=== PATIENT | female | born 1970 | race Caucasian/White ===

== ENCOUNTER 2016-10-19 07:48 | Inpatient (IN) | payer OTHER ==
[2016-10-19] MEDS ORDERED: NS 0.9% 1000 ML* 1,000 ML IV ONE (08:54)
[2016-10-19 09:34] LABS: Hematocrit 38 % (35-47); Hemoglobin 12.3 g/dl (12.0-16.0); Mean Corpuscular HGB Conc 33 g/dl (31-36); Mean Corpuscular Hemoglobin 26 pg (27-31); Mean Corpuscular Volume 81 fL (80-97); Mean Platelet Volume 8 um3 (7.4-10.4); Red Blood Count 4.66 10^6/ul (4.0-5.4); Red Cell Distribution Width 15 % (10.5-15)
[2016-10-19 09:55] LABS: Albumin 3.8 g/dL (3.2-5.2); BUN/Creatinine Ratio 14.5 (8-20); C Reactive Protein 48.51 mg/L (< 5.00); Calcium 9.2 mg/dL (8.6-10.3); EGFR African American 117.8 (>60); EGFR Non-African American 91.6 (>60); Potassium 4.3 mmol/L (3.5-5.0); Total Bilirubin 0.4 mg/dL (0.2-1.0); Total Protein 6.8 g/dL (6.4-8.9)
[2016-10-19] MEDS ORDERED: NS 0.9% 1000 ML* 3,000 ML IV ONE (10:00)
[2016-10-19] MEDS ORDERED: cefTRIAXone VIAL(*) 1,000 MG in NS 0.9% 50 ML* 50 ML IVPB ONE (10:04)
[2016-10-19] MEDS ORDERED: Azithromycin IV(*) 500 MG in NS 0.9% 250 ML* 250 ML IVPB ONE (10:04)
[2016-10-19] MEDS ORDERED: cefTRIAXone(*) 1 GM ADVAN/BAG ONE ×2 (10:11→10:14)
[2016-10-19 10:22] LABS: Erythrocyte Sed Rate 23 mm/Hr (0-14)
--- NOTE | 2016-10-19 10:23 | RAD ---
INDICATION: Cough. COMPARISON: Comparison is made with a prior chest x-ray study from June 08, 2015. TECHNIQUE: A portable view of the chest was obtained. FINDINGS: Cardiac and mediastinal contours appear to be within normal limits. The lungs are clear. No pleural effusion is seen. IMPRESSION: NO EVIDENCE FOR ACUTE DISEASE.
--- NOTE | 2016-10-19 10:57 | RAD ---
HISTORY: Chest pain, history of sarcoid COMPARISONS: June 21, 2016 TECHNIQUE: Multiple contiguous axial CT scans of the chest were obtained without intravenous contrast. Coronal and sagittal multiplanar reformations are also submitted for review. FINDINGS: The study is limited by the lack of intravenous contrast. This limits evaluation of the solid organs and vasculature. NECK AND THYROID: The lower neck and thyroid are unremarkable. CHEST WALL: There is no lower cervical, axillary, or supraclavicular lymphadenopathy by size criteria. HEART AND PERICARDIUM: The heart is unremarkable. AORTA AND PULMONARY VASCULATURE: The aorta and pulmonary vasculature are normal. MEDIASTINUM: There is no mediastinal lymphadenopathy by size criteria. MELINDA: Evaluation of the melinda is limited by the lack of intravenous contrast. There is no obvious hilar lymphadenopathy by size criteria. AIRWAY AND ESOPHAGUS: The airway is unremarkable, without endobronchial filling defect. The esophagus is grossly normal. LUNG PARENCHYMA: There is a 0.4 cm nodule of the right lower lobe on axial image 28. There is a 0.6 cm nodule of the right middle lobe on axial image 30. There are 2 nodules in the right lower lobe on axial image 27 measuring up to 0.4 cm. These are not clearly seen on the previous examination, though evaluation of the previous examination is limited by patient motion artifact. PLEURA: No pleural abnormalities are noted. UPPER ABDOMEN: There is fatty infiltration of liver BONES AND SOFT TISSUES: Degenerative changes are noted of the spine OTHER: None. IMPRESSION: 1. RIGHT PULMONARY PARENCHYMAL NODULES MEASURING UP TO 0.6 CM IN SIZE. 2. THE RECOMMENDATIONS FOR FOLLOWUP AND MANAGEMENT OF AN INCIDENTALLY DETECTED PULMONARY NODULE GREATER THAN 4 MM BUT LESS THAN OR EQUAL TO 6 MM IN SIZE, IN A PATIENT WITHOUT A HISTORY OF MALIGNANCY, INCLUDE FOLLOWUP CT IN 12 MONTHS FOR A LOW-RISK PATIENT OR FOLLOWUP CT IN 6-12 MONTHS, THEN AGAIN AT 18-24 MONTHS FOR A HIGH RISK PATIENT. NOTES: SIZE = AVERAGE LENGTH AND WIDTH; HIGH RISK IS DEFINED A HISTORY OF SMOKING OR OTHER KNOW RISK FACTORS FOR LUNG CANCER; LOW RISK IS DEFINED MINIMAL OR ABSENT HISTORY OF SMOKING OR OTHER KNOWN RISK FACTORS. NODULES WITH A GROUND GLASS COMPONENT MAY REQUIRE LONGER FOLLOW UP TO EXCLUDE INDOLENT ADENOCARCINOMA. .
[2016-10-19] MEDS ORDERED: Dextrose 50% Syringe 50 ML* 25 GM/50 ML SYRINGE IV PUSH PRN (11:31)
[2016-10-19] MEDS ORDERED: Albuterol 2.5 MG/3 ML NEB.SOL* (0.083%) INH PRN (11:31)
[2016-10-19] MEDS ORDERED: Acetaminophen TAB* 325 MG PO PRN (11:31)
[2016-10-19] MEDS ORDERED: NS 0.9% 1000 ML* 1,000 ML IV SCH (11:45)
[2016-10-19] MEDS ORDERED: Azithromycin IV(*) 500 MG in NS 0.9% 250 ML* 250 ML IVPB SCH (12:00)
--- NOTE | 2016-10-19 12:18 | HP ---
HISTORY AND PHYSICAL:* ADDENDUM: DATE OF ADMISSION: 10/19/16 Pulmonary nodules. Again at this point, we will set up followup with her primary and follow up with Dr. Varner for repeat imaging probably secondary to the sarcoidosis. I think she can follow up with Dr. Em as well. KHADRA DELGADO, MACERATOR OPERATOR [id number]/[facility] #: [id number] MARTHA
[2016-10-19 12:21] LABS: Urine Bacteria Absent (Absent); Urine Bilirubin Negative (Negative); Urine Glucose Negative (Negative); Urine Nitrite Negative (Negative)
[2016-10-19] MEDS: Ondansetron INJ* 2 MG/ML VIAL IV PRN (14:07)
[2016-10-19] MEDS: Heparin VIAL(*) 5000 UNITS/ML VIAL (FIVE THOUSAND) SUBCUT SCH (14:13)
[2016-10-19] MEDS ORDERED: Albuterol/Ipratropium NEB.SOL* Albuterol 2.5 MG/Ipratropium 0.5 MG 3 ML INH SCH (15:00)
--- NOTE | 2016-10-19 15:34 | HP ---
ADDENDUM NOW INCLUDED ON THIS REPORT HISTORY AND PHYSICAL: DATE OF ADMISSION: 10/19/16 PRIMARY CARE PROVIDER: Katie Drake MD. ATTENDING PHYSICIAN WHILE IN THE HOSPITAL: Jennifer Dahl MD *(report dictated by Marcel Mchugh NP). CHIEF COMPLAINT: 1. Cough. 2. Difficulty with breathing. HISTORY OF PRESENT ILLNESS: Mrs. Hernandez is a 46-year-old female patient that presents to the emergency room today stating that she over the last 3 weeks has not been feeling well. She started out feeling congested, having rhinorrhea, having postnasal drip. She saw her primary, apparently was started on an antibiotic, which she stopped early because of GI upset. She denied having any diarrhea. She says the antibiotic had just made her nauseous. She says that last night she started having chills, she was aching all over. She just has been aching all over and has not been feeling very well. She has been feeling nauseated. She does not have an appetite. She denied having any cough or bringing up any sputum. She does admit to feeling short of breath particularly with exertion and says that her chest feels tight, particularly when she tries to take a deep breath and says that her chest hurts whenever she coughs. She says that she may have had a fever last night because she was again shaking and just could not get warm. She was concerned that she was not getting any better , so she decided to come into the ER today for evaluation. She was evaluated in the ER. It was noted that she was tachy when she came in. She had elevated white count. There was concern for respiratory infection and the hospitalist service was asked to evaluate for admission. PAST MEDICAL HISTORY: Significant for: 1. Sarcoidosis. 2. Neuropathy. 3. Thyroiditis. 4. Asthma. 5. Celiac disease. 6. Prediabetes. 7. MRSA. PAST SURGICAL HISTORY: 1. She has had a history of an appendectomy. 2. Ovarian cyst excision. HOME MEDICATIONS: According to the bottle that she provided include: 1. Ventolin 2 puffs every 4 hours as needed. 2. ProAir 2 puffs inhale 4 times a day as needed. 3. Zofran 4 mg p.o. every 8 hours as needed. 4. Mometasone 1 spray nasal daily. 5. Triamcinolone paste 1 application topically daily. 6. Seasonique 1 tablet p.o. at bedtime. 7. Flonase 50 mcg both nares daily. 8. Mupirocin 1 application both nares at bedtime. 9. Metformin 2000 mg daily. 10. Synthroid 150 mcg p.o. daily. 11. Laminine 3 capsules p.o. daily. 12. Tylenol with Codeine 1 tablet tablet p.o. every 4 hours as needed. 13. Z-Jame 500 mg daily. 14. Oxybutynin 10 mg p.o. daily. 15. Pepcid 40 mg daily. 16. Prilosec 40 mg daily. 17. Naproxen 500 mg p.o. t.i.d. 18. Hydroxychloroquine 400 mg p.o. daily. ALLERGIES TO MEDICATIONS: Include LATEX, EFFEXOR, GLUTEN, LACTOSE, COMPAZINE, SULFA, PREDNISONE, SCALLOPS, and VISTARIL. FAMILY HISTORY: Mother had heart disease and high blood pressure. Father has a history of diabetes. SOCIAL HISTORY: She does not smoke, does not drink. Surrogate decision maker is her mother. REVIEW OF SYSTEMS: There is no documented fever. There are chills though. Denied any significant weight change. No double vision. No ear discharge. There was rhinorrhea. There was sore throat. There was no thyroid enlargement. She does admit to having chest pain with taking a deep breath. She describes a sharp stabbing pain. She denies having any shortness of breath. With exertion only is when she is short of breath. She denies any orthopnea or nocturnal dyspnea. She denies any abdominal pain. There was nausea. There was episodes of vomiting. No dysuria, no frequency, no loss of consciousness, no pruritus, no skin ulcerations. Review of 14 systems completed , all others negative. PHYSICAL EXAMINATION GENERAL: At this time, Mrs. Hernandez is a 46-year-old female patient. She is sitting in the ER stretcher. She does not appear to be in any acute distress. VITAL SIGNS: Blood pressure 131/79, initially was 95/76; pulse of 109, is now down to 98; respirations 18; O2 sat 97% on room air; temperature 97.1. HEENT: Head is atraumatic, normocephalic. Eyes: EOMs are intact. Sclerae anicteric. Throat: Oral mucosa appeared to be dry. No oropharyngeal erythema. NECK: Supple. LUNGS: Diminished but clear to auscultation. No wheezes, rales, or rhonchi. HEART: Sounds S1, S2. Regular rate and rhythm. No murmurs, rubs, or gallops. ABDOMEN: Soft, flat, nontender. Bowel sounds present. EXTREMITIES: Pulses 2+ throughout. She is able to move all 4 extremities with 5/5 strength. NEUROLOGIC: She is awake, alert, oriented x3. Tongue midline. Dyno Technician are equal. No gross focal deficits. SKIN: Grossly intact. DIAGNOSTIC STUDIES/LAB DATA: Labs today revealed a WBC of 17, RBC of 4.66, hemoglobin 12.3, hematocrit 38, platelet count 231. ESR of 23. D-dimer less than 200. Sodium 133, potassium 4.3, chloride of 100, bicarb 23, BUN 10, creatinine 0.69, glucose 134, lactate 3.1, calcium 9.2. Total bili 0.4, AST 15 , ALT 19, and alk phos 54. Troponin 0. Albumin of 3.8. She did have a chest x-ray obtained today, which revealed no evidence for acute disease. She had a chest CT today, which revealed right pulmonary parenchymal nodules measuring up to 0.6 cm inside. Recommendation is for followup and management of an incidentally detected pulmonary nodule greater than 4 mm but less than or equal to 6 mm in size in a patient without history of malignancy include CT scan in 12 months for low risk patient and followup CT in 12 months, then again in 18 and 24 months for a high risk patient. She had an EKG obtained today as well, which showed a normal sinus rhythm, rate of 98. No ST elevations or T-wave inversions were noted. Old medical records were reviewed. ASSESSMENT AND PLAN: Mrs. Hernandez is a 46-year-old female patient coming into the ER today with complaints of rhinorrhea, congestion, and just not feeling well and aching all over. It was noted that she had a white count. She was tachycardic when she came in and the hospitalist service was asked to evaluate for admission. She will be admitted under observation status for: 1. Upper respiratory infection. At this point, she did have early signs of sepsis with the pulse elevated at 109. In addition to this, she had that white count of 17,000 but heart rate is coming down now. She states she feels a little bit better. I think at this point she could still have a viral illness. Certainly she is immunocompromised as she does get Remicade for sarcoidosis. I think it is appropriate to put her on ceftriaxone and azithromycin. She does not need steroids at this point. I will give her inhaled steroids in the form of Dulera and nebs around the clock that can be titrated to her clinical improvement and will hydrate her with normal saline. Repeat the lactate, send off blood cultures and will continue to follow. I am also going to send a flu swab. 2. Sarcoidosis. Again, I did touch base with Dr. Varner. I do not think she needs to be seen inpatient but the patient requested a show host/hostess, so at discharge we should provide her with Dr. Varner's information. I will continue her current medical regimen. She follows with Dr. Em [place] in [place] for this and receives Remicade and again she can follow with Dr. Varner in the outpatient setting unless she has any deteriorations here, then obviously we can have Dr. Varner evaluate inpatient. 3. Neuropathy. Continue meds as prescribed. 4. History of thyroiditis. Continue her Synthroid. 5. Asthma. Continue her current medical regimen. 6. History of celiac disease. I have ordered a gluten diet. 7. History of prediabetes. I will put her on a lispro sliding scale. During acute illness, we will hold her metformin. 8. History of MRSA. Contact precautions will be ordered. 9. Code status. Full code. 10. Fluids, electrolytes, and nutrition. She can have a gluten-free diet. 11. DVT prophylaxis. She will be placed on heparin subcu. TIME SPENT: On the admission approximately 60 minutes, greater than half time was spent [id number] with the patient obtaining my history and physical; the other half the time was spent going over the plan of care with the patient and implementing plan of care. I did discuss the plan of care with my attending, Dr. Dahl; she is in agreement. MARCEL MCHUGH NP ADDENDUM: DATE OF ADMISSION: 10/19/16 Pulmonary nodules. Again at this point, we will set up followup with her primary and follow up with Dr. Varner for repeat imaging probably secondary to the sarcoidosis. I think she can follow up with Dr. Em as well. MARCEL MCHUGH NP CC: Katie Drake MD; Dr. Varner* [id number]/[facility] #: [id number]/[facility] #: [id number] MTDD
[2016-10-19] MEDS: Insulin LISPRO* 1 UNITS UNIT SUBCUT SCH (16:19)
[2016-10-19] MEDS ORDERED: Albuterol 2.5 MG/3 ML NEB.SOL* (0.083%) INH SCH (19:00)
[2016-10-19] MEDS: Albuterol/Ipratropium NEB.SOL* Albuterol 2.5 MG/Ipratropium 0.5 MG 3 ML INH SCH (19:25)
[2016-10-19] MEDS: Mometasone/Formoter 200/5 MDI INH SCH (20:07)
[2016-10-19] MEDS ORDERED: Famotidine TAB* 20 MG PO SCH (21:00)
[2016-10-19] MEDS ORDERED: Mupirocin 2% OINT* TUBE TOPICAL SCH (21:00)
[2016-10-19] MEDS: Acetaminop/Codeine 30 MG TAB* 1 TAB (300 MG/30 MG) PO PRN (22:06)
[2016-10-20] MEDS: Heparin VIAL(*) 5000 UNITS/ML VIAL (FIVE THOUSAND) SUBCUT SCH ×2 (00:03→05:18)
[2016-10-20] MEDS: Albuterol/Ipratropium NEB.SOL* Albuterol 2.5 MG/Ipratropium 0.5 MG 3 ML INH SCH ×2 (01:07→08:00)
[2016-10-20] MEDS ORDERED: Levothyroxine TAB* 150 MCG TAB PO SCH (06:00)
[2016-10-20 06:36] LABS: Hematocrit 34 % (35-47); Hemoglobin 11.3 g/dl (12.0-16.0); Mean Corpuscular HGB Conc 33 g/dl (31-36); Mean Corpuscular Hemoglobin 27 pg (27-31); Mean Corpuscular Volume 81 fL (80-97); Mean Platelet Volume 8 um3 (7.4-10.4); Red Blood Count 4.24 10^6/ul (4.0-5.4); Red Cell Distribution Width 15 % (10.5-15); White Blood Count 7.8 10^3/ul (3.5-10.8)
[2016-10-20 06:54] LABS: BUN/Creatinine Ratio 12.7 (8-20); Calcium 8.7 mg/dL (8.6-10.3); EGFR African American 130.8 (>60); EGFR Non-African American 101.7 (>60); Potassium 4.2 mmol/L (3.5-5.0)
[2016-10-20] MEDS: Mometasone/Formoter 200/5 MDI INH SCH (08:03)
[2016-10-20] MEDS ORDERED: Hydroxychloroquine TAB* 200 MG PO SCH (09:00)
[2016-10-20] MEDS ORDERED: Fluticasone NASAL SPRAY 50MCG* 16 gm SPRAY BTL BOTH NARES SCH (09:00)
[2016-10-20] MEDS ORDERED: Omeprazole CAP* 20 MG PO SCH (09:00)
[2016-10-20] MEDS ORDERED: OXYBUTYNIN 10 MG PO SCH (09:00)
[2016-10-20] MEDS ORDERED: Triamcinolone 0.025% OINT * 15 GM TUBE TOPICAL SCH (09:00)
[2016-10-20] MEDS ORDERED: cefTRIAXone VIAL(*) 1,000 MG in NS 0.9% 50 ML* 50 ML IVPB SCH (10:00)
[2016-10-20] MEDS: Insulin LISPRO* 1 UNITS UNIT SUBCUT SCH (10:07)
[2016-10-20] MEDS: Acetaminop/Codeine 30 MG TAB* 1 TAB (300 MG/30 MG) PO PRN (10:22)
[2016-10-20] MEDS: Ondansetron INJ* 2 MG/ML VIAL IV PRN (10:38)
[2016-10-20 11:04] VITALS: BP 142/84
--- NOTE | 2016-10-20 11:06 | DCNOTE ---
Patient seen this morning. Feeling much improved. No residual symptoms, breathing easy. No cough, fever, chills. On exam, RRR, s1 and s2 present, no m/g/r, lungs CTA B/L, no wheezes, rales or ronchi, abd obese, soft, NTND, BS+ Will discharge home on Cefpodozime PO for total of 7 days for possible CAP. Had UA and UCx done as outpatient growing E. Coli but low CFU (25-50K). Will make referral to see Dr. Varner and will f/u with her rn transitional in [place].
[2016-10-20] MEDS ORDERED: Naproxen TAB* 250 MG PO PRN (11:12)
--- NOTE | 2016-10-21 00:26 | DS ---
CC: Dr. Drake DISCHARGE SUMMARY: DATE OF ADMISSION: 10/19/16 DATE OF DISCHARGE: 10/20/16 PRIMARY CARE PHYSICIAN: Dr. Drake. PRINCIPAL DISCHARGE DIAGNOSIS: Community-acquired pneumonia. SECONDARY DIAGNOSES: 1. Sarcoidosis. 2. Neuropathy. 3. Thyroiditis. 4. Asthma. 5. Celiac disease. 6. Prediabetes. 7. Methicillin-resistant Staphylococcus aureus. STUDIES DURING THE HOSPITALIZATION: CT of the chest without contrast. Impression: Right pulmonary parenchymal nodules measuring up to 0.6 cm in size, which may be new from previous examination. The patient should have a repeat CT scan as an outpatient for followup. These are likely sarcoid nodul es. Chest x-ray. Impression: No evidence for acute disease. DISCHARGE MEDICATION REGIMEN: 1. Cefuroxime 250 mg by mouth 2 times daily. 2. Hydroxychloroquine 400 mg by mouth daily. 3. Naproxen 500 mg by mouth 3 times daily. 4. Omeprazole 40 mg by mouth daily. 5. Famotidine 40 mg by mouth at bedtime. 6. Oxybutynin 10 mg by mouth daily. 7. Azithromycin 500 mg by mouth daily. 8. Tylenol with Codeine 1 tablet by mouth every 4 hours as needed for pain. 9. Laminin 3 capsules by mouth daily. 10. Levothyroxine 150 mcg by mouth daily. 11. Metformin 2000 mg by mouth daily. 12. Mupirocin 1 application both nares at bedtime. 13. Fluticasone 50 mcg both nares daily. 14. Seasonique 1 tablet by mouth at bedtime. 15. Triamcinolone 1 application topical daily. 16. Mometasone 1 spray nasal daily. 17. Zofran 4 mg by mouth every 8 hours as needed for nausea. 18. Pro-Air 2 puffs inhaled 4 times daily as needed for shortness of breath or wheezing. HPI AND HOSPITAL COURSE: Please see the full history and physical by Marcel Mchugh NP, for full de tails. Briefly, Ms. Hernandez is a 46-year-old female with a past medical history as above, who presen roxana with about 3 weeks of congestion, malaise, rhinorrhea, more recently with chills and diffuse bod y aches as well as some chest tightness, particularly with deep breaths and coughing. The patient h ad a similar presentation in May where she was found to have a pneumonia at that time. In the emergency department, she was found to be tachycardic with a white blood cell count of 17. She was afebrile. As noted above, imaging was largely unremarkable. The patient did have mildly elevated C RP of 48. Urinalysis here was negative. However, the patient apparently had a urinalysis done at [facility] as an outpatient and culture was growing E. coli. However, there were only 25,000 to 50,000 colo ny forming units. Here in the hospital, the patient was started on ceftriaxone in addition to her h ome azithromycin. By the following day, her symptoms have improved greatly. She reported no respir atory symptoms, was not requiring any oxygen, her tachycardia and leukocytosis both resolved as well as her mild lactic acidosis. Flu swab was done here that was negative. The patient will be discharged home on cefuroxime. She states she has recently been told by her [facility] doctor in [place] to continue taking azithromycin 500 mg by mouth daily, possibly indefinit tuyet. She states she has recurrent sinus infections and congestion. The patient will need to follow up with Dr. Drake and also follow up with her paper goods machine operator in [place] and to her tailings dam pumper in [place]. The patient will be given a referral for Dr. Varner here in [place]. So, she could valles ve a local administrative assistant receptionist to help treat her sarcoidosis. TIME SPENT: Total time spent on this discharge was 45 minutes. This is a summary of the hospitalization. Please see the full medical record for further details. [id number]/[facility] #: [id number]
--- NOTE | 2016-10-25 11:45 | ED ---
Kelsea Martin Anna, scribed for Mis Vinson MD on 10/19/16 at 0858 . Complex/Multi-Sys Presentation - HPI Summary HPI Summary: Patient is a 46 y/o female coming to [facility] presenting with constant body aches that began two weeks ago. She became sick with a URI on 10/01/2016. She was placed on Augmentin. She experienced emesis and nausea beginning 10/06/2016. She stopped taking the Augmentin 10/07/2016 and stopped experiencing emesis on 2016. She has not been able to eat much since then. She still has nausea. She has been taking Zofran and Azithromycin. She went to her doctor two days ago for chest tightness and was instructed to use albuterol. Last night, she became shaky and had the chills. She had generalized weakness and edema. This morning, her chest hurt. She did an albuterol treatment, but it did not alleviate the symptoms. In the mornings, she sometimes has a productive cough with yellow phlegm. She additionally has sinus pain and a sinus YEE. Her history is significant for sarcoidosis and Hashimotos disease. She takes Remicade infusions every six weeks, most recently 09/07/2016. She was not able to receive her most recent treatment because she was placed on Abx for a sinus infection. She is scheduled for her next infusion on 11/02/2016. Denies Hx of blood clots. She says she can do contrast dye. - History Of Current Complaint Chief Complaint: EDWeakness Time Seen by Provider: 10/19/16 08:23 Hx Obtained From: Patient Onset/Duration: Gradual Onset, Lasting Weeks, Still Present - Allergies/Home Medications Allergies/Adverse Reactions: Allergies Allergy/AdvReac Type Severity Reaction Status Date / Time Latex Allergy Intermediate ITCHY Verified 10/19/16 07:52 Venlafaxine [From Effexor] Allergy Unknown Shakes Verified 10/19/16 07:52 Gluten Meal Allergy GI Upset Verified 10/19/16 07:52 Lactose Intolerance (GI) Allergy GI Upset Verified 10/19/16 07:52 Prochlorperazine Allergy TONGUE Verified 10/19/16 07:52 [From Compazine] SWELLING Sulfa Antibiotics Allergy Edema Verified 10/19/16 07:52 Prednisone AdvReac Swelling Verified 10/19/16 07:52 SCALLOPS Allergy Severe Anaphylatic Uncoded 10/19/16 07:52 Shock vistaril Allergy Severe tongue Uncoded 10/19/16 07:52 swells Home Medications: Home Medications Acetaminop/Codeine 30 MG TAB* [Tylenol/Codeine 30 MG TAB*] 1 tab PO Q4HR PRN [History Confirmed 10/19/16] Azithromycin TAB* [Zithromax TAB (Z-IGNACIO) 250 mg #6 tabs] 500 mg PO DAILY [History Confirmed 10/19/16] Famotidine [Pepcid] 40 mg PO BEDTIME 10/19/16 [History Confirmed 10/19/16] Fluticasone Furoate [Flonase Sensimist] 50 mcg BOTH NARES DAILY 10/19/16 [ History Confirmed 10/19/16] Oxybutynin Chloride [Oxybutynin Chloride ER] 10 mg PO DAILY 10/19/16 [History Confirmed 10/19/16] Seasonique 0.15-0.03 &0.01 mg 1 tab PO BEDTIME 10/19/16 [History Confirmed 10/19] Triamcinolone PASTE 0.1% (NF) [Triamcinolone 0.1% PASTE *] 1 apply TOPICAL DAILY 10/19/16 [History Confirmed 10/19/16] PMH/Surg Hx/FS Hx/Imm Hx Endocrine/Hematology History: Reports: Hx Diabetes - prediabetic, Hx Thyroid Disease - Bon's, Other Endocrine/Hematological Disorders - sarcoidosis Denies: Hx Anticoagulant Therapy Cardiovascular History: Denies: Hx Hypertension, Hx Pacemaker/ICD Respiratory History: Reports: Hx Asthma, Other Respiratory Problems/Disorders - SARCOIDOSIS Denies: Hx Chronic Obstructive Pulmonary Disease (COPD) GI History: Denies: Hx Ulcer History: Denies: Hx Dialysis, Hx Renal Disease Sensory History: Denies: Hx Hearing Aid Neurological History: Denies: Hx Dementia, Hx Seizures Psychiatric History: Denies: Hx Panic Disorder, Hx Substance Abuse - Cancer History Hx Chemotherapy: Yes - (remicade sarcoidosis NEUROPOTHY) Hx Radiation Therapy: No - Surgical History Surgery Procedure, Year, and Place: tonsils; incidental appendectomy and laparoscopic surgery for scar tissue around the ovarian cysts, sinus surgery for deviated septum 15 yrs ago and 07/11. sinus surgery 2014 Infectious Disease History: Yes Infectious Disease History: Reports: Hx of Known/Suspected MRSA - right lower leg Denies: Hx Clostridium Difficile, Hx Hepatitis, Hx Human Immunodeficiency Virus (HIV), Hx Shingles, Hx Tuberculosis, Hx Known/Suspected VRE, Hx Known/ Suspected VRSA, History Other Infectious Disease, Traveled Outside the [place] in Last 30 Days - Family History Family History: Hx of breast CA in aunt and maternal grandmother - Social History Lives: Alone Alcohol Use: None Substance Use Type: Reports: None Smoking Status (MU): Never Smoked Tobacco Have You Smoked in the Last Year: No Review of Systems Positive: Chills - and shaking ENT: Other - sinus pain Positive: Chest Pain Positive: Cough Positive: Vomiting, Nausea Positive: Myalgia, Edema Positive: Headache, Weakness - generalized All Other Systems Reviewed And Are Negative: Yes Physical Exam Triage Information Reviewed: Yes Vital Signs On Initial Exam: Initial Vitals Temp Pulse Resp BP Pulse Ox 97.1 F 109 18 95/76 100 10/19/16 07:52 10/19/16 07:52 10/19/16 07:52 10/19/16 07:52 10/19/16 07:52 Vital Signs Reviewed: Yes Appearance: Positive: Well-Appearing, No Pain Distress Skin: Positive: Warm, Skin Color Reflects Adequate Perfusion, Dry Eyes: Positive: EOMI, DEE ENT: Positive: Pharynx normal, TMs normal Neck: Positive: Supple, Nontender Respiratory/Lung Sounds: Positive: Clear to Auscultation, Breath Sounds Present. Negative: Rales, Rhonchi, Wheezes Cardiovascular: Positive: RRR. Negative: Murmur, Rub, Other - gallop Abdomen Description: Positive: Nontender, Soft Bowel Sounds: Positive: Present Musculoskeletal: Positive: Strength/ROM Intact. Negative: Edema Left, Edema Right Neurological: Positive: Sensory/Motor Intact, Alert, Oriented to Person Place, Time, CN Intact II-III - II-XII Psychiatric: Positive: Affect/Mood Appropriate - Shana Coma Scale Coma Scale Total: 15 Diagnostics - Vital Signs Vital Signs Temp Pulse Resp BP Pulse Ox 10/19/16 08:15 104 10/19/16 08:07 111 98 10/19/16 08:05 131/79 10/19/16 07:52 97.1 F 109 18 95/76 100 - Laboratory Result Diagrams: 10/19/16 09:15 10/19/16 09:15 Lab Statement: Any lab studies that have been ordered have been reviewed, and results considered in the medical decision making process. - Radiology CXR Xray Interpretation: No Acute Changes Radiology Interpretation Completed By: Radiologist - IMPRESSION: NO EVIDENCE FOR ACUTE DISEASE. - CT CT Chest CT Interpretation: Positive (See Comments) CT Interpretation Completed By: Radiologist - IMPRESSION: 1. RIGHT PULMONARY PARENCHYMAL NODULES MEASURING UP TO 0.6 CM IN SIZE. 2. THE RECOMMENDATIONS FOR FOLLOWUP AND MANAGEMENT OF AN INCIDENTALLY DETECTED PULMONARY NODULE GREATER THAN 4 MM BUT LESS THAN OR EQUAL TO 6 MM IN SIZE, IN A PATIENT WITHOUT A HISTORY OF MALIGNANCY, INCLUDE FOLLOWUP CT IN 12 MONTHS FOR A LOW-RISK PATIENT OR FOLLOWUP CT IN 6-12 MONTHS, THEN AGAIN AT 18-24 MONTHS FOR A HIGH RISK PATIENT. NOTES: SIZE = AVERAGE LENGTH AND WIDTH; HIGH RISK IS DEFINED A HISTORY OF SMOKING OR OTHER KNOW RISK FACTORS FOR LUNG CANCER; LOW RISK IS DEFINED MINIMAL OR ABSENT HISTORY OF SMOKING OR OTHER KNOWN RISK FACTORS. NODULES WITH A GROUND GLASS COMPONENT MAY REQUIRE LONGER FOLLOW UP TO EXCLUDE INDOLENT ADENOCARCINOMA. - EKG 0853 Cardiac Rate: NL - 98 bpm EKG Rhythm: Sinus Rhythm ST Segment: Normal Ectopy: None Re-Evaluation - Re-Evaluation First Eval Re-Evaluation Time: 10:07 Comment: Discussed results and plan of care with patient. Patient agrees with plan. Complex Multi-Symp Course/Dx - Diagnoses Provider Diagnoses: Leukocytosis (leucocytosis), PNA (pneumonia) - Physician Notifications Discussed Care Of Patient With: Dr. Barrientos (hospitalist) at 1003. Agrees to accept patient for admission. Discharge - Discharge Plan Condition: Stable Disposition: ADMITTED TO [facility] Referrals: Katie Drake MD [Primary Care Provider] - The documentation as recorded by the Kelsea perera Anna accurately reflects the service I personally performed and the decisions made by me, Mis Vinson MD.
== END 2016-10-20 14:11 | disposition home or self-care (01) | DRG 139 ==
LOC: ED 07:48 → INTOOBSV 10:04 → MEDTELE 10:04 → OBSVTOIN 15:00
PROVIDERS: ADMIT Internal Medicine; ATTEND Hospitalist
DX: J18.9 Pneumonia, unspecified organism (principal); E87.2 Acidosis; K90.0 Celiac disease; J45.909 Unspecified asthma, uncomplicated; E06.9 Thyroiditis, unspecified; G62.9 Polyneuropathy, unspecified; R73.03 Prediabetes; R91.8 Other nonspecific abnormal finding of lung field; D86.9 Sarcoidosis, unspecified; J06.9 Acute upper respiratory infection, unspecified; Z79.84 Long term (current) use of oral hypoglycemic drugs; Z86.14 Personal history of Methicillin resistant Staphylococcus aureus infection; Z88.1 Allergy status to other antibiotic agents; Z88.2 Allergy status to sulfonamides; Z88.8 Allergy status to other drugs, medicaments and biological substances; Z91.040 Latex allergy status; Z83.3 Family history of diabetes mellitus; Z82.49 Family history of ischemic heart disease and other diseases of the circulatory system
CPT/HCPCS: 36415; 71010; 71250; 80048; 80053; 81003; 81015; 83605; 84484; 85025; 85379; 85610; 85652; 86140; 87040; 87070; 87205; 87502; 87641; 87899; 93005; 94640; 94760; A9270-GY; G0378; J0456; J0696; J1644; J2405

== ENCOUNTER 2016-12-01 20:15 | Emergency (ER) | payer OTHER ==
[2016-12-01] MEDS ORDERED: Albuterol/Ipratropium NEB.SOL* Albuterol 2.5 MG/Ipratropium 0.5 MG 3 ML INH ONE (22:09)
[2016-12-01] MEDS ORDERED: Albuterol/Ipratropium NEB.SOL* Albuterol 2.5 MG/Ipratropium 0.5 MG 3 ML ONE (22:27)
--- NOTE | 2016-12-01 23:29 | RAD ---
INDICATION: Chest tightness and shortness of breath in a patient with a reported history of sarcoidosis. COMPARISON: Similar chest x-ray dated October 19, 2016. TECHNIQUE: Portable PA only view of the chest was obtained. FINDINGS: Evaluation is limited due to the inherent inferiority of a portable chest x-ray and due to the patient's apparent large body habitus. The heart and mediastinum are normal in size and contour. The lungs are grossly clear. There is no evidence of large pleural effusion. Visualized bones are normal for the patient's age. There is no radiographic evidence of free air beneath the diaphragm IMPRESSION: No radiographic evidence of acute cardiopulmonary disease.
[2016-12-02 00:04] LABS: Hematocrit 37 % (35-47); Hemoglobin 12.5 g/dl (12.0-16.0); Mean Corpuscular HGB Conc 34 g/dl (31-36); Mean Corpuscular Hemoglobin 27 pg (27-31); Mean Corpuscular Volume 81 fL (80-97); Mean Platelet Volume 8 um3 (7.4-10.4); Red Blood Count 4.61 10^6/ul (4.0-5.4); Red Cell Distribution Width 14 % (10.5-15)
[2016-12-02 00:20] LABS: ALT 29 U/L (7-52); AST 17 U/L (13-39); Albumin 3.9 g/dL (3.2-5.2); Alkaline Phosphatase 66 U/L (34-104); Anion Gap 12 mmol/L (2-11); BUN/Creatinine Ratio 16.7 (8-20); Blood Urea Nitrogen 12 mg/dL (6-24); CO2 Carbon Dioxide 21 mmol/L (22-32); Calcium 9.9 mg/dL (8.6-10.3); Chloride 101 mmol/L (101-111); EGFR African American 112.1 (>60); EGFR Non-African American 87.2 (>60); Globulin 3.5 g/dL (2-4); Glucose 103 mg/dL (70-100); Potassium 3.8 mmol/L (3.5-5.0); Sodium 134 mmol/L (133-145); Total Protein 7.4 g/dL (6.4-8.9)
[2016-12-02] MEDS ORDERED: NS 0.9% 1000 ML* 2,000 ML IV ONE (00:56)
[2016-12-02 03:45] VITALS: BP 113/59
--- NOTE | 2016-12-02 04:34 | ED ---
Kelsea Martin Anna, scribed for Vj Londono on 12/01/16 at 2242 . Respiratory - HPI Summary HPI Summary: Patient is a 46 y/o female coming to [facility] presenting with an intermittent cough that began today, accompanied by yellow sputum. She additionally reports joint pain of severity 9/10, SOB, low-grade temperatures (most recently 96 F), peeling tongue, and a laceration on her right arm. She used her nebulizer at home, but there was no improvement in the symptoms. She is concerned for infection and reports having an autoimmune disease. She is pre-diabetic and takes Metformin at night. - History of Current Complaint Chief Complaint: EDGeneral Stated Complaint: SOB,UPPER RESPIRATORY COMPLAINT Time Seen by Provider: 12/01/16 21:58 Hx Obtained From: Patient Initial Severity: Moderate Current Severity: Moderate Pain Intensity: 9 - /10 Sputum Amount: Moderate Sputum Color: Yellow Alleviating Factor(s): Nothing Associated Signs and Symptoms: SOB - Allergy/Home Medications Allergies/Adverse Reactions: Allergies Allergy/AdvReac Type Severity Reaction Status Date / Time Latex Allergy Intermediate ITCHY Verified 10/19/16 07:52 Venlafaxine [From Effexor] Allergy Unknown Shakes Verified 10/19/16 07:52 Gluten Meal Allergy GI Upset Verified 10/19/16 07:52 Lactose Intolerance (GI) Allergy GI Upset Verified 10/19/16 07:52 Prochlorperazine Allergy TONGUE Verified 10/19/16 07:52 [From Compazine] SWELLING Sulfa Antibiotics Allergy Edema Verified 10/19/16 07:52 Prednisone AdvReac Swelling Verified 10/19/16 07:52 SCALLOPS Allergy Severe Anaphylatic Uncoded 10/19/16 07:52 Shock vistaril Allergy Severe tongue Uncoded 10/19/16 07:52 swells PMH/Surg Hx/FS Hx/Imm Hx Endocrine/Hematology History: Reports: Hx Diabetes - prediabetic, Hx Thyroid Disease - Bon's, Other Endocrine/Hematological Disorders - sarcoidosis Denies: Hx Anticoagulant Therapy Cardiovascular History: Denies: Hx Hypertension, Hx Pacemaker/ICD Respiratory History: Reports: Hx Asthma, Other Respiratory Problems/Disorders - sarcoidosis of the lungs Denies: Hx Chronic Obstructive Pulmonary Disease (COPD) GI History: Reports: Other GI Disorders - celiac Denies: Hx Ulcer History: Denies: Hx Dialysis, Hx Renal Disease Sensory History: Reports: Hx Contacts or Glasses Denies: Hx Hearing Aid Opthamlomology History: Reports: Hx Contacts or Glasses Neurological History: Denies: Hx Dementia, Hx Seizures Psychiatric History: Denies: Hx Panic Disorder, Hx Substance Abuse - Cancer History Cancer Type, 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 sinus surgery 2013 Infectious Disease History: Yes Infectious Disease History: Reports: Hx of Known/Suspected MRSA - right lower leg Denies: Hx Clostridium Difficile, Hx Hepatitis, Hx Human Immunodeficiency Virus (HIV), Hx Shingles, Hx Tuberculosis, Hx Known/Suspected VRE, Hx Known/ Suspected VRSA, History Other Infectious Disease, Traveled Outside the [place] in Last 30 Days - Family History Family History: Hx of breast CA in aunt and maternal grandmother - Social History Alcohol Use: None Substance Use Type: Reports: None Smoking Status (MU): Never Smoked Tobacco Have You Smoked in the Last Year: No Review of Systems Constitutional: Other - low-grade temperature ENT: Other - peeling tongue Positive: Shortness Of Breath, Cough Positive: Myalgia Skin: Other - laceration All Other Systems Reviewed And Are Negative: Yes Physical Exam Triage Information Reviewed: Yes Vital Signs On Initial Exam: Initial Vitals Temp Pulse Resp BP Pulse Ox 99.8 F 108 20 155/83 99 12/01/16 20:31 12/01/16 20:31 12/01/16 20:31 12/01/16 20:31 12/01/16 20:31 Vital Signs Reviewed: Yes Appearance: Positive: Well-Appearing, No Pain Distress Skin: Positive: Warm, Skin Color Reflects Adequate Perfusion Head/Face: Positive: Normal Head/Face Inspection Eyes: Positive: EOMI, DEE ENT: Positive: Normal ENT inspection Neck: Positive: Supple, Nontender Respiratory/Lung Sounds: Positive: Breath Sounds Present, Wheezes - occasional, bilateral Cardiovascular: Positive: RRR, Pulses are Symmetrical in both Upper and Lower Extremities Abdomen Description: Positive: Nontender, Soft Bowel Sounds: Positive: Present Musculoskeletal: Positive: Normal, Strength/ROM Intact Neurological: Positive: Normal, Sensory/Motor Intact, Alert, Oriented to Person Place, Time - [place] Coma Scale Coma Scale Total: 15 Diagnostics - Vital Signs Vital Signs Temp Pulse Resp BP Pulse Ox 12/01/16 22:23 114 20 99 12/01/16 22:11 98.6 F 111 22 134/69 97 12/01/16 20:31 99.8 F 108 20 155/83 99 - Laboratory Result Diagrams: 12/01/16 23:45 12/01/16 23:45 Lab Statement: Any lab studies that have been ordered have been reviewed, and results considered in the medical decision making process. - Radiology CXR Xray Interpretation: No Acute Changes Radiology Interpretation Completed By: Radiologist - IMPRESSION: No radiographic evidence of acute cardiopulmonary disease. Disposition - Course Course Of Treatment: This is a 46 y/o female presenting with weakness. pabs and x-rays were done. Her lactic acid was mildly elevated. IV fluids were given. She is on antibiotics. It is advised that she continues her antibiotics. - Diagnoses Provider Diagnoses: Weakness Discharge - Discharge Plan Condition: Stable Disposition: HOME Discharge Disposition Comment: Please follow up with your primary care provider within 3 days. Patient Education Materials: Weakness (ED) Referrals: Katie Drake MD [Primary Care Provider] - The documentation as recorded by the Kelsea perera Anna accurately reflects the service I personally performed and the decisions made by , Vj Londono.
--- NOTE | 2016-12-02 11:13 | RAD ---
INDICATION: Shortness of breath in a patient with history of sarcoidosis COMPARISON: Most recent comparison chest x-rays dated December 01, 2016 TECHNIQUE: PA and lateral views of the chest were obtained. FINDINGS: The heart and mediastinum are normal in size and contour. The lungs are grossly clear. There is no evidence of large pleural effusion. Visualized bones are normal for the patient's age. There is no radiographic evidence of free air beneath the diaphragm IMPRESSION: No radiographic evidence of acute cardiopulmonary disease.
== END 2016-12-02 03:45 | disposition home or self-care (01) ==
LOC: ED 20:15
DX: R53.1 Weakness (principal); R06.02 Shortness of breath; R05 Cough
CPT/HCPCS: 36415; 71020; 80053; 83605; 83880; 84484; 84702; 85025; 85610; 85730; 94640; 99283; A9270-GY

== ENCOUNTER 2017-03-16 09:58 | Emergency (ER) | payer OTHER ==
[2017-03-16] MEDS ORDERED: NS 0.9% 1000 ML* 1,000 ML IV ONE ×2 (12:46→12:47)
[2017-03-16] MEDS ORDERED: Clindamycin 600 MG IVPREMIX(* 600 MG/50 ML SDV IV ONE (12:46)
[2017-03-16 14:48] LABS: Hematocrit 37 % (35-47); Mean Corpuscular HGB Conc 33 g/dl (31-36); Mean Corpuscular Hemoglobin 26 pg (27-31); Mean Corpuscular Volume 80 fL (80-97); Mean Platelet Volume 9 um3 (7.4-10.4); Red Blood Count 4.61 10^6/ul (4.0-5.4); Red Cell Distribution Width 14 % (10.5-15)
[2017-03-16 15:02] LABS: Albumin 3.9 g/dL (3.2-5.2); BUN/Creatinine Ratio 21.2 (8-20); C Reactive Protein 112.18 mg/L (< 5.00); Calcium 9.4 mg/dL (8.6-10.3); EGFR Non-African American 96.4 (>60); Globulin 3.3 g/dL (2-4); Potassium 3.9 mmol/L (3.5-5.0); Total Bilirubin 0.3 mg/dL (0.2-1.0); Total Protein 7.2 g/dL (6.4-8.9)
--- NOTE | 2017-03-16 15:57 | ED ---
Chloé Martin Rebecca, scribed for Brett Turner MD on 03/16/17 at 1245 . Skin Complaint - HPI Summary HPI Summary: Pt is a 46 y/o F who presents to ED c/o an abscess to the inguinal region. Reports the abscess worsened today, doubling in size from yesterday, currently being the size "of a tennis ball." Associated pain is currently severe, ranked 8 /10. Applied warm compresses to the affected area, without relief. Sx aggravated and alleviated by nothing. Notes a low-grade subjective fever. 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 Pt is immunocompromised. Allergy to Sulfa. - History of Current Complaint Chief Complaint: EDGeneral Time Seen by Provider: 03/16/17 12:32 Stated Complaint: ABCESS, Hx Obtained From: Patient Hx Last Menstrual Period: 12/05/14 Onset/Duration: Still Present, Worse Since - Today Current Severity: Severe Pain Intensity: 8 Pain Scale Used: 0-10 Numeric Skin Location: Other: - Inguinal Character: Raised - "tennis ball", Painful Aggravating Symptom(s): Nothing Alleviating Symptom(s): Nothing Associated Signs & Symptoms: Fever - low-grade - Additional Pertinent History Primary Care Physician: [id number] - Allergy/Home Medications Allergies/Adverse Reactions: Allergies Allergy/AdvReac Type Severity Reaction Status Date / Time Latex Allergy Intermediate ITCHY Verified 10/19/16 07:52 Venlafaxine [From Effexor] Allergy Unknown Shakes Verified 10/19/16 07:52 Gluten Meal Allergy GI Upset Verified 10/19/16 07:52 Ketorolac Allergy Vomiting Verified 03/16/17 11:38 Lactose Intolerance (GI) Allergy GI Upset Verified 10/19/16 07:52 Morphine and Related Allergy Vomiting Verified 03/16/17 11:38 Prochlorperazine Allergy TONGUE Verified 10/19/16 07:52 [From Compazine] SWELLING Sulfa Antibiotics Allergy Edema Verified 10/19/16 07:52 Prednisone AdvReac Swelling Verified 10/19/16 07:52 SCALLOPS Allergy Severe Anaphylatic Uncoded 10/19/16 07:52 Shock vistaril Allergy Severe tongue Uncoded 10/19/16 07:52 swells PMH/Surg Hx/FS Hx/Imm Hx Endocrine/Hematology History: Reports: Hx Diabetes - prediabetic, Hx Thyroid Disease - Bon's, Other Endocrine/Hematological Disorders - sarcoidosis Denies: Hx Anticoagulant Therapy Cardiovascular History: Denies: Hx Hypertension, Hx Pacemaker/ICD Respiratory History: Reports: Hx Asthma, Other Respiratory Problems/Disorders - sarcoidosis of the lungs Denies: Hx Chronic Obstructive Pulmonary Disease (COPD) GI History: Reports: Other GI Disorders - celiac Denies: Hx Ulcer History: Denies: Hx Dialysis, Hx Renal Disease Sensory History: Reports: Hx Contacts or Glasses Denies: Hx Hearing Aid Opthamlomology History: Reports: Hx Contacts or Glasses Neurological History: Denies: Hx Dementia, Hx Seizures Psychiatric History: Denies: Hx Panic Disorder, Hx Substance Abuse - Cancer History Cancer Type, 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 sinus surgery 2013 Infectious Disease History: Reports: Hx of Known/Suspected MRSA - right lower leg Denies: Hx Clostridium Difficile, Hx Hepatitis, Hx Human Immunodeficiency Virus (HIV), Hx Shingles, Hx Tuberculosis, Hx Known/Suspected VRE, Hx Known/ Suspected VRSA, History Other Infectious Disease, Traveled Outside the [place] in Last 30 Days - Family History Family History: Hx of breast CA in aunt and maternal grandmother - Social History Alcohol Use: None Substance Use Type: Reports: None Smoking Status (MU): Never Smoked Tobacco Have You Smoked in the Last Year: No Review of Systems Positive: Fever - Low-grade subjective fever Positive: Other - Painful abscess in the inguinal area All Other Systems Reviewed And Are Negative: Yes Physical Exam - Summary Physical Exam Summary: General: well-appearing, no pain distress Skin: warm, dry, in the leg/groin fold on the left side there is swelling and erythema Head: normal Eyes: EOMI, DEE ENT: normal Neck: supple, nontender Respiratory: CTA, breath sounds present Cardiovascular: RRR Abdomen: soft, nontender Bowel: present Musculoskeletal: normal, strength/ROM intact Neurological: normal, sensory/motor intact, A&O x3 Psychological: affect/mood appropriate Triage Information Reviewed: Yes Vital Signs On Initial Exam: Initial Vitals Temp Pulse Resp BP Pulse Ox 97.9 F 111 20 145/79 100 03/16/17 10:11 03/16/17 10:11 03/16/17 10:11 03/16/17 10:11 03/16/17 10:11 Vital Signs Reviewed: Yes Diagnostics - Vital Signs Vital Signs Temp Pulse Resp BP Pulse Ox 03/16/17 11:33 97.9 F 96 16 131/95 98 03/16/17 10:11 97.9 F 111 20 145/79 100 - Laboratory Lab Results: Lab Results 03/16/17 03/16/17 03/16/17 Range/Units 14:30 14:30 14:30 WBC 12.0 H (3.5-10.8) 10^3/ul RBC 4.61 (4.0-5.4) 10^6/ul Hgb 12.0 (12.0-16.0) g/dl Hct 37 (35-47) % MCV 80 (80-97) fL MCH 26 L (27-31) pg MCHC 33 (31-36) g/dl RDW 14 (10.5-15) % Plt Count 295 (150-450) 10^3/ul MPV 9 (7.4-10.4) um3 Neut % (Auto) 76.0 (38-83) % Lymph % (Auto) 14.4 L (25-47) % [place] % (Auto) 6.6 (1-9) % Eos % (Auto) 2.7 (0-6) % Baso % (Auto) 0.3 (0-2) % Absolute Neuts (auto) 9.1 H (1.5-7.7) 10^3/ul Absolute Lymphs (auto) 1.7 (1.0-4.8) 10^3/ul Absolute Monos (auto) 0.8 (0-0.8) 10^3/ul Absolute Eos (auto) 0.3 (0-0.6) 10^3/ul Absolute Basos (auto) 0 (0-0.2) 10^3/ul Absolute Nucleated RBC 0.01 10^3/ul Nucleated RBC % 0 INR (Anticoag Therapy) 0.92 (0.89-1.11) APTT 27.6 (26.0-36.3) seconds Sodium 137 (133-145) mmol/L Potassium 3.9 (3.5-5.0) mmol/L Chloride 104 (101-111) mmol/L Carbon Dioxide 24 (22-32) mmol/L Anion Gap 9 (2-11) mmol/L BUN 14 (6-24) mg/dL Creatinine 0.66 (0.51-0.95) mg/dL Est GFR ( Amer) 124.0 (>60) Est GFR (Non-Af Amer) 96.4 (>60) BUN/Creatinine Ratio 21.2 H (8-20) Glucose 118 H (70-100) mg/dL Lactic Acid (0.5-2.0) mmol/L Calcium 9.4 (8.6-10.3) mg/dL Total Bilirubin 0.30 (0.2-1.0) mg/dL AST 13 (13-39) U/L ALT 17 (7-52) U/L Alkaline Phosphatase 72 (34-104) U/L C-Reactive Protein 112.18 H (< 5.00) mg/L Total Protein 7.2 (6.4-8.9) g/dL Albumin 3.9 (3.2-5.2) g/dL Globulin 3.3 (2-4) g/dL Albumin/Globulin Ratio 1.2 (1-3) / Range/Units 14:30 WBC (3.5-10.8) 10^3/ul RBC (4.0-5.4) 10^6/ul Hgb (12.0-16.0) g/dl Hct (35-47) % MCV (80-97) fL MCH (27-31) pg MCHC (31-36) g/dl RDW (10.5-15) % Plt Count (150-450) 10^3/ul MPV (7.4-10.4) um3 Neut % (Auto) (38-83) % Lymph % (Auto) (25-47) % [place] % (Auto) (1-9) % Eos % (Auto) (0-6) % Baso % (Auto) (0-2) % Absolute Neuts (auto) (1.5-7.7) 10^3/ul Absolute Lymphs (auto) (1.0-4.8) 10^3/ul Absolute Monos (auto) (0-0.8) 10^3/ul Absolute Eos (auto) (0-0.6) 10^3/ul Absolute Basos (auto) (0-0.2) 10^3/ul Absolute Nucleated RBC 10^3/ul Nucleated RBC % INR (Anticoag Therapy) (0.89-1.11) APTT (26.0-36.3) seconds Sodium (133-145) mmol/L Potassium (3.5-5.0) mmol/L Chloride (101-111) mmol/L Carbon Dioxide (22-32) mmol/L Anion Gap (2-11) mmol/L BUN (6-24) mg/dL Creatinine (0.51-0.95) mg/dL Est GFR ( Amer) (>60) Est GFR (Non-Af Amer) (>60) BUN/Creatinine Ratio (8-20) Glucose (70-100) mg/dL Lactic Acid 1.7 (0.5-2.0) mmol/L Calcium (8.6-10.3) mg/dL Total Bilirubin (0.2-1.0) mg/dL AST (13-39) U/L ALT (7-52) U/L Alkaline Phosphatase (34-104) U/L C-Reactive Protein (< 5.00) mg/L Total Protein (6.4-8.9) g/dL Albumin (3.2-5.2) g/dL Globulin (2-4) g/dL Albumin/Globulin Ratio (1-3) Result Diagrams: 03/16/17 14:30 03/16/17 14:30 Lab Statement: Any lab studies that have been ordered have been reviewed, and results considered in the medical decision making process. Re-Evaluation - Re-Evaluation First Eval Re-Evaluation Time: 15:50 Course/Dx - Course Course Of Treatment: I & D BY OLIVIA DECKER DID NOT RETURN ANY PUS. WILL RX CLINDAMYCIN AND PT WILL F/U WITH PMD. SHE WILL RETURN IF WORSE. - Diagnoses Provider Diagnoses: Abscess or cellulitis of groin Discharge - Discharge Plan Condition: Stable Disposition: HOME Prescriptions: Clindamycin Cap(NF) [Clindamycin Cap 300 mg Cap(NF)] 300 mg PO Q6H #40 cap Patient Education Materials: Cellulitis (ED) Referrals: Katie Drake MD [Primary Care Provider] - Additional Instructions: FOLLOW UP WITH YOUR DOCTOR. RETURN TO THE EMERGENCY DEPARTMENT FOR ANY WORSENING OF YOUR CONDITION; FEVER, SPREAD OF INFECTION, YOU FEEL ILL OR QUESTIONS OR CONCERNS. The documentation as recorded by the Chloé perera Rebecca accurately reflects the service I personally performed and the decisions made by me, Brett Turner MD.
[2017-03-16 16:14] VITALS: BP 138/76
--- NOTE | 2017-03-18 11:06 | PN ---
Progress Note - Progress Note Date of Service: 03/16/17 Note: I&D was completed by me for Dr Turner. Left labial abscess, appears to be deep on palpation. Attempted superficial I&D and did not return any discharge. Used 1% lidocaine local anesthetic. Scalpel and sterile procedure. Not packed as there was no pocket. Patient was aware of potential side effects and insisted on I&D. Has history of multiple abscessed and MRSA +. No culture obtained this procedure due to no discharge. Bleeding was minimal to none at end of procedure. Dressed with sterile telfa. Patient tolerated procedure well. No complications. Abscess too deep and unable to keep superficially to I&D. Start on clinda. Aware of worsening signs and symptoms. Continue warm compresses.
== END 2017-03-16 16:18 | disposition home or self-care (01) ==
LOC: ED 09:58
DX: L02.214 Cutaneous abscess of groin (principal); R50.9 Fever, unspecified
CPT/HCPCS: 36415; 80053; 83605; 85025; 85610; 85730; 86140; 87040; 99282

== ENCOUNTER 2017-03-18 14:06 | Inpatient (IN) | payer OTHER ==
[2017-03-18] MEDS ORDERED: NS 0.9% 1000 ML* 1,000 ML IV ONE (18:59)
--- NOTE | 2017-03-18 19:32 | ED ---
Tim Martin Alfonso, scribed for Ale Chris MD on 03/18/17 at 1929 . Complex/Multi-Sys Presentation - HPI Summary HPI Summary: This patient is a 46 year old F presenting to [facility] with a chief complaint of an abscess left buttock since a prior visit to the ED. Pt states edema and erythema has spread since Sat. The pt reports she doesnt feel good and I just hurt all over. The patient rates the pain 10/10 in severity. Pt only take T+C# 3 for pain which is not helping. Patient reports fever (since yesterday) ( tmax 101) Pt came into the ED two days ago for this wound. Pt states attempted I +D - no drainage obtained. Pt was given IV clindamycin and discharged home on abx but states getting worse. Pt has also been applying warm soaks. Pt is on immunosuppresant agents PMHx of autoimmune illness, sinus surgeries, cellulitis in LE a few years ago, PNA (twice in the past), MRSA, and septicemia (2x in the past year). Patients medication reviewed this visit. - History Of Current Complaint Chief Complaint: EDExtremityLower Time Seen by Provider: 03/18/17 18:50 Hx Obtained From: Patient Onset/Duration: Lasting Days - Previous visit 2 days ago for the same complaint. Timing: Constant Severity Currently: Severe Location: Pain At: - Inguinal region Aggravating Factor(s): nothing Alleviating Factor(s): Cipro Associated Signs And Symptoms: Positive: Other - Patient reports fever (since yesterday), sinus issues (headache), inflamed palps, inflammation, scarring, and skin irritation. Related History: Similar Episode/Diagnosed As: - 2 days ago, unresolved - Allergies/Home Medications Allergies/Adverse Reactions: Allergies Allergy/AdvReac Type Severity Reaction Status Date / Time Latex Allergy Intermediate ITCHY Verified 10/19/16 07:52 Venlafaxine [From Effexor] Allergy Unknown Shakes Verified 10/19/16 07:52 Gluten Meal Allergy GI Upset Verified 10/19/16 07:52 Hydroxyzine Allergy Swelling Verified 03/20/17 10:14 Of Face,Lips,& Throat Ketorolac Allergy Vomiting Verified 03/16/17 11:38 Lactose Intolerance (GI) Allergy GI Upset Verified 10/19/16 07:52 Morphine and Related Allergy Vomiting Verified 03/16/17 11:38 Prochlorperazine Allergy TONGUE Verified 10/19/16 07:52 [From Compazine] SWELLING Sulfa Antibiotics Allergy Edema Verified 10/19/16 07:52 Prednisone AdvReac Swelling Verified 10/19/16 07:52 SCALLOPS Allergy Severe Anaphylatic Uncoded 10/19/16 07:52 Shock Home Medications: Home Medications Apremilast (NF) [Otezla] 30 mg PO BID 03/18/17 [History Confirmed 03/19/17] Gabapentin [Gabapentin] 200 mg PO BEDTIME 03/18/17 [History Confirmed 03/19/17] Fluticas/Salmet 115/21 HFA(NF) [Advair HFA 115/21 (NF)] 2 puff INH BID 03/19/17 [History Confirmed 03/19/17] Fluticasone NASAL * [Flonase *] 1 spray BOTH NARES DAILY 03/19/17 [History Confirmed 03/19/17] PMH/Surg Hx/FS Hx/Imm Hx Previously Healthy: Yes Endocrine/Hematology History: Reports: Hx Diabetes - prediabetic, Hx Thyroid Disease - Bon's, Other Endocrine/Hematological Disorders - sarcoidosis Denies: Hx Anticoagulant Therapy Cardiovascular History: Denies: Hx Hypertension, Hx Pacemaker/ICD Respiratory History: Reports: Hx Asthma, Other Respiratory Problems/Disorders - sarcoidosis of the lungs Denies: Hx Chronic Obstructive Pulmonary Disease (COPD) GI History: Reports: Other GI Disorders - celiac Denies: Hx Ulcer History: Denies: Hx Dialysis, Hx Renal Disease Sensory History: Reports: Hx Contacts or Glasses Denies: Hx Hearing Aid Opthamlomology History: Reports: Hx Contacts or Glasses Neurological History: Denies: Hx Dementia, Hx Seizures Psychiatric History: Denies: Hx Panic Disorder, Hx Substance Abuse - Cancer History Cancer Type, 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 sinus surgery 2013 Infectious Disease History: Yes Infectious Disease History: Reports: Hx of Known/Suspected MRSA - right lower leg Denies: Hx Clostridium Difficile, Hx Hepatitis, Hx Human Immunodeficiency Virus (HIV), Hx Shingles, Hx Tuberculosis, Hx Known/Suspected VRE, Hx Known/ Suspected VRSA, History Other Infectious Disease, Traveled Outside the [place] in Last 30 Days - Family History Known Family History: Positive: Diabetes Family History: Hx of breast CA in aunt and maternal grandmother - Social History Lives: Alone Alcohol Use: None Substance Use Type: Reports: None Smoking Status (MU): Never Smoked Tobacco Have You Smoked in the Last Year: No Review of Systems Constitutional: Negative Positive: Fatigue Eyes: Negative ENT: Negative Cardiovascular: Negative Respiratory: Negative Gastrointestinal: Negative Genitourinary: Negative Musculoskeletal: Negative Skin: Other Neurological: Negative Psychological: Normal All Other Systems Reviewed And Are Negative: Yes Physical Exam Triage Information Reviewed: Yes Vital Signs On Initial Exam: Initial Vitals Temp Pulse Resp BP Pulse Ox 98.6 F 104 20 141/74 98 03/18/17 14:35 03/18/17 14:35 03/18/17 14:35 03/18/17 14:35 03/18/17 14:35 Vital Signs Reviewed: Yes Appearance: Positive: Well-Appearing, No Pain Distress, Well-Nourished Skin: Positive: Other - Pt with erythema and edema from left gluteal anterior. + TTP. no flucutance, no drainage. + TTP. no crepitus. edema adjacent to labia but does not include labia warm Head/Face: Positive: Normal Head/Face Inspection Eyes: Positive: Normal, EOMI, DEE, Conjunctiva Clear ENT: Positive: Normal ENT inspection, Pharynx normal Neck: Positive: Supple, Nontender Respiratory/Lung Sounds: Positive: Clear to Auscultation, Breath Sounds Present , Decreased Breath Sounds Cardiovascular: Positive: Normal, RRR Abdomen Description: Positive: Nontender, No Organomegaly, Soft Bowel Sounds: Positive: Present Musculoskeletal: Positive: Normal Neurological: Positive: Normal, Sensory/Motor Intact, Alert, Oriented to Person Place, Time Psychiatric: Positive: Normal AVPU Assessment: Alert - [place] Coma Scale Best Eye Response: 4 - Spontaneous Best Motor Response: 6 - Obeys Commands Best Verbal Response: 5 - Oriented Coma Scale Total: 15 Diagnostics - Vital Signs Vital Signs Temp Pulse Resp BP Pulse Ox 03/18/17 18:57 98.4 F 03/18/17 18:42 98.3 F 108 26 138/71 100 03/18/17 17:40 99.5 F 100 20 145/70 100 03/18/17 15:57 98.2 F 110 20 141/84 98 03/18/17 14:35 98.6 F 104 20 141/74 98 - Laboratory Result Diagrams: 03/21/17 06:21 03/21/17 05:31 Lab Statement: Any lab studies that have been ordered have been reviewed, and results considered in the medical decision making process. - CT Pelvis CT Interpretation Completed By: Radiologist - SOFT TISSUE SWELLING IN THE MEDIAL INFERIOR LEFT GLUTEAL FOLD MOST CONSISTENT WITH CELLULITIS, NO ABSCESS IS SEEN. Re-Evaluation - Re-Evaluation First Eval Comment: REviewed CT and labs with pt. No fluid collection. will admit. continued vanco. po ok Complex Multi-Symp Course/Dx Assessment/Plan: Pt with area of cellulitis, erythema and induration left gluteal fold with extension anterior along labia. Pt is on clindamycin since Saturday - reports progression. Pt is immunocompromised and h/o MRSA. Will check labs. cultures. vanco. CT for ?abscess. Pt declined analgesa. Pt comfortable and in agreement with plan - Diagnoses Provider Diagnoses: Cellulitis - Physician Notifications Discussed Care Of Patient With: Elfego Jansen Time Discussed With Above Provider: 21:30 Instructed by Provider To: Other - Consulted Dr. Jansen (hospitalist) who agrees to admit pt. Discharge - Discharge Plan Condition: Stable Disposition: ADMITTED TO [facility] documentation as recorded by the Tim perera Alfonso accurately reflects the service I personally performed and the decisions made by , Ale Chris MD.
[2017-03-18 20:19] LABS: Hematocrit 39 % (35-47); Hemoglobin 12.4 g/dl (12.0-16.0); Mean Corpuscular HGB Conc 32 g/dl (31-36); Mean Corpuscular Hemoglobin 26 pg (27-31); Mean Corpuscular Volume 80 fL (80-97); Mean Platelet Volume 9 um3 (7.4-10.4); Red Blood Count 4.87 10^6/ul (4.0-5.4); Red Cell Distribution Width 14 % (10.5-15); White Blood Count 14.8 10^3/ul (3.5-10.8)
[2017-03-18] MEDS ORDERED: Vancomycin(*) 1,000 MG in NS 0.9% 250 ML* 250 ML IVPB ONE (20:26)
[2017-03-18 20:36] LABS: Albumin 4.4 g/dL (3.2-5.2); BUN/Creatinine Ratio 14.7 (8-20); Calcium 9.9 mg/dL (8.6-10.3); EGFR Non-African American 83.2 (>60); Globulin 3.6 g/dL (2-4); Potassium 4.1 mmol/L (3.5-5.0); Total Bilirubin 0.4 mg/dL (0.2-1.0)
[2017-03-18] MEDS ORDERED: Iodixanol* (CONTRAST) 320 MG/ML 100 ML SDV IV ONE (20:49)
--- NOTE | 2017-03-18 21:33 | RAD ---
INDICATION: Cellulitis with possible abscess. COMPARISON: There are no prior studies available for comparison. TECHNIQUE: Contiguous axial sections were obtained through the pelvis with intravenous and oral contrast. The exam was performed following intravenous injection of 141 ml of Visipaque 320. Images were reconstructed in the coronal and sagittal planes. FINDINGS: The visualized portion of the small bowel and colon appear nondistended. There is a small periumbilical hernia containing fat. There is a small amount of air anterior to the rectum and anus possibly within the vagina. No discrete fluid collection is seen in this region. No free intraperitoneal air or fluid is seen. In the left medial inferior gluteal fold there is focal soft tissue swelling. No discrete fluid collection or abscess is seen. No enlarged pelvic lymph nodes are seen. There are mildly prominent lymph nodes in the left inguinal region measuring up to 1.4 cm in transverse dimension. IMPRESSION: SOFT TISSUE SWELLING IN THE MEDIAL INFERIOR LEFT GLUTEAL FOLD MOST CONSISTENT WITH CELLULITIS, NO ABSCESS IS SEEN.
[2017-03-18] MEDS ORDERED: Vancomycin per Pharmacy* NOTE FOLLOW UP SCH (23:00)
[2017-03-19] MEDS ORDERED: Albuterol HFA INHALER* 8 gm MDI INH PRN (00:05)
[2017-03-19] MEDS ORDERED: Dextrose 50% Syringe 50 ML* 25 GM/50 ML SYRINGE IV PUSH PRN (00:16)
[2017-03-19] MEDS ORDERED: Ondansetron ODT TAB* 4 MG ONE (00:59)
[2017-03-19] MEDS ORDERED: Acetaminop/Codeine 30 MG TAB* 1 TAB (300 MG/30 MG) ONE (00:59)
[2017-03-19] MEDS ORDERED: Vancomycin(*) 1,000 MG in NS 0.9% 250 ML* 250 ML IVPB ONE (01:00)
[2017-03-19] MEDS: NS 0.9% 1000 ML* 1,000 ML IV SCH ×2 (01:04→21:37)
[2017-03-19] MEDS: Ondansetron ODT TAB* 4 MG PO PRN ×2 (01:06→11:08)
[2017-03-19] MEDS: Acetaminop/Codeine 30 MG TAB* 1 TAB (300 MG/30 MG) PO PRN ×5 (01:06→21:32)
[2017-03-19] MEDS ORDERED: Vancomycin per Pharmacy* NOTE FOLLOW UP PRN (01:18)
--- NOTE | 2017-03-19 02:09 | HP ---
CC: Dr. Katie Drake * HISTORY AND PHYSICAL: DATE OF ADMISSION: 03/18/17 PRIMARY CARE PROVIDER: Dr. Katie Drake. ATTENDING PHYSICIAN: Dr. Elfego Jansen * (dictated by Leona Ibrahim NP). CHIEF COMPLAINT: Redness and swelling to left inner gluteal fold. HISTORY OF PRESENT ILLNESS: Ms. Hernandez is a 46-year-old female with past medical history significant for sarcoidosis possibly of the lungs, neuropathy, Bon's, asthma, celiac disease, prediabetes, and MRSA history, who presents to the emergency room with complaints of an abscess of her left buttock. The patient states that she was last seen on 03/16/17, for what she felt had started out to be an abscess around an ingrown hair that by , 03/14/17, had developed into approximately a golf ball size between and Saturday to Saturday feeling like this as a tennis ball. The patient had edema and erythema. She states the area was unable to be I and D'd and there was no drainage noted. She was given IV clindamycin while in the emergency room and then discharged home on oral clindamycin with a diagnosis of cellulitis. The patient states that she feels as though the edema and erythema have continued to spread and she just generally does not feel well. She reports fever since yesterday with a max temperature of 101. She has also been doing warm soaks to the area. Due to the patient continuing to not feel well and feeling as though her cellulitis was increasing, she presented to the emergency room for further evaluation of her symptoms. While in the emergency room, the patient had labs that were significant for leukocytosis with a white blood cell count of 14.8. She had a pelvis CT showing a left gluteal swelling consistent with cellulitis and no abscess seen. Hospitalists were asked to evaluate the patient for admission. PAST MEDICAL HISTORY: 1. Sarcoidosis of the lung, although not confirmed by biopsy. 2. Neuropathy of the feet. 3. Bon's thyroiditis. 4. Prediabetic. 5. Asthma. 6. Celiac disease. 7. History of MRSA in leg wound and in her sinuses. 8. Obstructive sleep apnea. PAST SURGICAL HISTORY: 1. Status post appendectomy. 2. Status post excision of an ovarian cyst. 3. Sinus surgery for a deviated septum at age 15. 4. Status post sinus surgery in 2013. 5. Status post sinus surgery and removal of polyps approximately 1 month ago. 6. Status post tonsillectomy. HOME MEDICATIONS: Include: 1. Emuaid topical twice daily to the ankle. 2. Otezla 30 mg oral twice daily. 3. Seasonique 1 tablet oral daily at bedtime. 4. ProAir HFA inhaler 2 puffs inhalation 4 times daily as needed for shortness of breath. 5. Oxybutynin ER 10 mg oral daily every evening. 6. Omeprazole ODT 4 mg oral every 8 hours as needed for nausea. 7. Omeprazole 40 mg oral daily. 8. Naproxen 500 mg oral twice daily. 9. Metformin 2000 mg oral daily in the evening. 10. Levothyroxine 150 mcg oral daily. 11. Plaquenil 400 mg oral daily. 12. Flonase nasal spray 500 mcg spray to both nares daily. 13. Pepcid 400 mg oral daily at bedtime. 14. Clindamycin 300 mg oral every 6 hours. 15. Azithromycin 500 mg oral daily. 16. Tylenol No.3 one tablet oral every 4 hours as needed for pain. 17. Gabapentin 200 mg oral daily at bedtime. 18. Advair 115/21 two puffs inhalation twice daily. ALLERGIES: LATEX, EFFEXOR, gluten intolerance, KETOROLAC, lactose intolerance, MORPHINE, COMPAZINE, SULFA, PREDNISONE, SCALLOPS, and VISTARIL. FAMILY HISTORY: The patient has a family history of coronary artery disease in her mother. The patient's father and paternal grandfather had a history of diabetes mellitus. The patient's paternal aunt had a history of breast cancer with metastasis. She had a maternal uncle with blood cancer and maternal great grandmother with colon and brain cancer. SOCIAL HISTORY: The patient denies tobacco, alcohol, or recreational drug use. The patient is disabled. Her mother, July Hernandez, will be her surrogate decision maker in the event she is unable to make decisions for herself. REVIEW OF SYSTEMS: I performed a 14-point review of systems. All the pertinent positives and negatives are mentioned in the history of present illness. The patient also reports occasional chest tightness or shortness of breath with exertion, sinus pain. She has had nausea and denies any urinary symptoms. The remaining review of systems is negative. PHYSICAL EXAMINATION GENERAL APPEARANCE: The patient is alert, pleasant, and appears to be in no acute distress. VITAL SIGNS: Temperature 100.4, heart rate 100, respiratory rate 16, O2 sat 96 % on room air, blood pressure 132/76. HEENT: Normocephalic, atraumatic. Pupils are equal and reactive to light. Extraocular movements are intact. RESPIRATORY: There is no accessory muscle use. Lungs are clear to auscultation bilaterally. CARDIOVASCULAR: Regular rate and rhythm. S1 and S2 present. There are no murmurs, rubs, or gallops heard. ABDOMEN: Soft, nontender, nondistended. There are bowel sounds present x4. EXTREMITIES: There is no lower extremity edema. DP and PT pulses are 2+ and symmetric. MUSCULOSKELETAL: There is no clubbing or cyanosis noted. The patient exhibits good strength in all extremities. NEUROLOGIC: The patient is alert and oriented x4. Cranial nerves II through XII are grossly intact. PSYCHOLOGICAL: The patient is calm and cooperative. SKIN: The patient has some erythema and open areas to bilateral shins. The patient also has area of erythema and swelling to her medial inner left gluteal fold. DIAGNOSTIC STUDIES/LAB DATA: Sodium 134, potassium 4.1, chloride 100, CO2 of 24, BUN 11, creatinine 0.75, glucose 104. White blood cell count 14.8, hemoglobin 12.4, hematocrit 39, and platelet count 374,000. Pelvic CT from today. Radiologist's impression: Soft tissue swelling in the medial inferior left gluteal fold, most consistent with cellulitis, no abscesses seen. ASSESSMENT/PLAN: 1. Cellulitis. The patient's cellulitis is not responsive to clindamycin outpatient. The patient continues to be febrile and complains of chills. She will be placed on vancomycin and cefepime. She has had a history of methicillin - resistant Staphylococcus aureus in the past. Will check blood cultures. If her cellulitis does not improve on the vancomycin and cefepime, I would recommend getting an Infectious Disease consult. 2. History of asthma. The patient will be continued on her home albuterol as needed and home Advair or equivalent. 3. Neuropathy. The patient will be continued on her home gabapentin. 4. Bon's thyroiditis with hypothyroidism. The patient will be continued on her home levothyroxine. Her last TSH in April 2016 was 1.16. 5. Gastroesophageal reflux disease. The patient will be continued on her home omeprazole and famotidine. 6. Prediabetes. We will hold the patient's metformin. She will get fingersticks a.c. and h.s. We will place her on lispro sliding scale insulin. 7. Morbid obesity. The patient's BMI is 41. 8. Obstructive sleep apnea. The patient will be continued on her home BiPAP. 9. Fluids, electrolytes, and nutrition. The patient will be on a regular gluten- free, lactose-free diet. 10. Code status. Full code. 11. DVT prophylaxis. The patient is at moderate risk and will be placed on subcu heparin. 12. Disposition. Observation for cellulitis. TIME SPENT: Time for this admission was approximately 60 minutes; greater than half of that was spent with the patient discussing medications, past medical history, events leading up to her arrival today and performing a physical examination. The case has been reviewed with the attending, Dr. Jansen, who agrees with the plan of care. Reviewed by SUZY BARRETT 03/20/17 1203 [id number]/[facility] #: [id number] MTDMalia
[2017-03-19] MEDS: Cefepime(*) 2 GM in NS 0.9% 50 ML* 50 ML IVPB SCH ×2 (04:10→15:27)
[2017-03-19] MEDS: LEVONORGESTREL PO SCH ×2 (04:20→21:34)
[2017-03-19] MEDS: ETHINYL ESTRADIOL PO SCH ×2 (04:20→21:34)
[2017-03-19] MEDS: Levothyroxine TAB* 150 MCG TAB PO SCH (06:00)
[2017-03-19] MEDS: Heparin VIAL(*) 5000 UNITS/ML VIAL (FIVE THOUSAND) SUBCUT SCH ×3 (06:01→21:46)
[2017-03-19 06:12] LABS: Hematocrit 35 % (35-47); Hemoglobin 11.4 g/dl (12.0-16.0); Mean Corpuscular HGB Conc 33 g/dl (31-36); Mean Corpuscular Hemoglobin 26 pg (27-31); Mean Corpuscular Volume 79 fL (80-97); Mean Platelet Volume 8 um3 (7.4-10.4); Red Cell Distribution Width 14 % (10.5-15); White Blood Count 14.2 10^3/ul (3.5-10.8)
[2017-03-19] MEDS ORDERED: NS 0.9% 250 ML* 250 ML ONE (08:55)
[2017-03-19] MEDS: Omeprazole CAP* 20 MG PO SCH (09:01)
[2017-03-19] MEDS: Naproxen TAB* 250 MG PO SCH ×2 (09:02→19:28)
[2017-03-19] MEDS: Azithromycin TAB* 250 MG PO SCH (09:02)
[2017-03-19] MEDS: Hydroxychloroquine TAB* 200 MG PO SCH (09:02)
[2017-03-19] MEDS: Insulin LISPRO* 1 UNITS UNIT SUBCUT SCH ×3 (09:03→18:33)
[2017-03-19] MEDS: Fluticasone NASAL SPRAY 50MCG* 16 gm SPRAY BTL BOTH NARES SCH (09:03)
[2017-03-19] MEDS: [UNRECOGNIZED DRUG - OTHER] TOPICAL PRN (09:04)
[2017-03-19] MEDS: APREMILAST 30 MG PO SCH (11:04)
[2017-03-19] MEDS: Vancomycin(*) 1,250 MG in NS 0.9% 250 ML* 250 ML IVPB SCH ×2 (11:07→18:36)
--- NOTE | 2017-03-19 13:02 | PN ---
Subjective Date of Service: 03/19/17 Interval History: Patient seen and examined at bedside. She reports feeling feverish overnight and states that some of the affected areas have opened and have been draining this morning. She has not noticed much difference yet with the antibiotics. She endorses a history of "multiple autoimmune problems" and sees Dr. Salguero ( rheumatology) in [place], as well as Dr. Em ("autoimmune specialist") in [place]. She denies CP, SOB, n/v. Family History: Unchanged from Admission Social History: Unchanged from Admission Past Medical History: Unchanged from Admission Objective Active Medications: Acetaminophen/Codeine Phosphate (Tylenol/Codeine 30 Mg Tab*) 1 tab PO Q4HR PRN PRN Reason: PAIN Last Admin: 03/19/17 09:02 Dose: 1 tab Albuterol (Ventolin Hfa Inhaler*) 2 puff INH QID PRN PRN Reason: asthma Azithromycin (Zithromax Tab*) 500 mg PO DAILY [facility] Last Admin: 03/19/17 09:02 Dose: 500 mg Dextrose (D50w Syringe 50 Ml*) 12.5 gm IV PUSH .FOR FS < 60 - SS PRN PRN Reason: FS < 60 Famotidine (Pepcid Tab*) 40 mg PO QPM [facility] Fluticasone Propionate (Flonase Nasal [place] 50mcg*) 1 spray BOTH NARES DAILY [facility] Last Admin: 03/19/17 09:03 Dose: 1 spray Gabapentin (Neurontin Cap(*)) 200 mg PO BEDTIME [facility] Heparin Sodium (Porcine) (Heparin Vial(*)) 5,000 units SUBCUT Q8HR [facility] Last Admin: 03/19/17 06:01 Dose: 5,000 units Hydroxychloroquine Sulfate (Plaquenil Tab*) 400 mg PO DAILY [facility] Last Admin: 03/19/17 09:02 Dose: 400 mg Cefepime HCl 2 gm/ Sodium (Chloride) 50 mls @ 100 mls/hr IVPB Q12H [facility] Last Admin: 03/19/17 04:10 Dose: 100 mls/hr Sodium Chloride (Ns 0.9% 1000 Ml*) 1,000 mls @ 75 mls/hr IV PER RATE [facility] Last Admin: 03/19/17 01:04 Dose: 75 mls/hr Vancomycin HCl 1,250 mg/ (Sodium Chloride) 250 mls @ 166.667 mls/hr IVPB Q8H [facility] Last Admin: 03/19/17 11:07 Dose: 166.667 mls/hr Insulin Human Lispro (Humalog*) 0 - 10 units SUBCUT AC [facility] PRN Reason: Protocol Last Admin: 03/19/17 09:03 Dose: 1 unit Levothyroxine Sodium (Synthroid Tab*) 150 mcg PO 0600 [facility] Last Admin: 03/19/17 06:00 Dose: 150 mcg Naproxen (Naprosyn Tab*) 500 mg PO BID [facility] Last Admin: 03/19/17 09:02 Dose: 500 mg (Apremilast [Otezla] (30 Mg)) 30 mg PO BID [facility] Last Admin: 03/19/17 11:04 Dose: Not Given Pto: Ashlyna 0.15-0. (03 &0.01 Mg 1 Tab)) 1 tab PO BEDTIME [facility] Last Admin: 03/19/17 04:20 Dose: 1 tab Pto: Emuaid Cream 1 dose TOPICAL BID PRN PRN Reason: PROVIDER DISCRETION Last Admin: 03/19/17 09:04 Dose: 1 dose Omeprazole (Prilosec Cap*) 40 mg PO DAILY [facility] Last Admin: 03/19/17 09:01 Dose: 40 mg Ondansetron HCl (Zofran Odt Tab*) 4 mg PO Q8H PRN PRN Reason: NAUSEA/VOMITING Last Admin: 03/19/17 11:08 Dose: 4 mg Oxybutynin Chloride (Ditropan Xl Tab*) 10 mg PO QPM [facility] Pharmacy Consult (Vancomycin Per Pharmacy*) 1 note FOLLOW UP . PRN PRN Reason: PER PROTOCOL Pharmacy Profile Note (Vancomycin Trough Check) 1 note FOLLOW UP 09 ONE Stop: 03/20/17 09:01 Vital Signs 03/18/17 03/18/17 03/18/17 22:28 23:17 23:43 Temperature 100.4 F 99.1 F Pulse Rate 100 103 Respiratory 16 16 18 Rate Blood Pressure 132/76 133/60 (mmHg) O2 Sat by Pulse 96 100 Oximetry 03/19/17 03/19/17 03/19/17 01:06 03:06 03:09 Temperature 98.6 F Pulse Rate 100 Respiratory 18 18 18 Rate Blood Pressure 109/48 (mmHg) O2 Sat by Pulse 96 Oximetry 03/19/17 03/19/17 03/19/17 04:11 07:49 08:00 Temperature 98.7 F Pulse Rate 100 Respiratory 18 16 18 Rate Blood Pressure 115/73 (mmHg) O2 Sat by Pulse 98 Oximetry 03/19/17 03/19/17 03/19/17 09:02 10:49 11:02 Temperature 99.5 F Pulse Rate 104 Respiratory 16 16 Rate Blood Pressure 127/66 (mmHg) O2 Sat by Pulse 96 Oximetry 03/19/17 11:55 Temperature 98.4 F Pulse Rate 95 Respiratory 16 Rate Blood Pressure 122/68 (mmHg) O2 Sat by Pulse 95 Oximetry Oxygen Devices in Use Now: None Appearance: Female patient, lying in bed, NAD Eyes: No Scleral Icterus Ears/Nose/Mouth/Throat: Clear Oropharnyx, Mucous Membranes Moist Neck: NL Appearance and Movements; NL JVP Respiratory: Symmetrical Chest Expansion and Respiratory Effort, Clear to Auscultation Cardiovascular: NL Sounds; No Murmurs; No JVD, RRR Abdominal: NL Sounds; No Tenderness; No Distention Extremities: No Edema, No Clubbing, Cyanosis Skin: - - erythema and swelling from left labia extending to perineum and left buttock; also with erythema and shallow wounds to shins Neurological: Alert and Oriented x 3, NL Muscle Strength and Tone Lines/Tubes/Other Access: Clean, Dry and Intact Peripheral IV Nutrition: Taking PO's Result Diagrams: 03/19/17 05:52 03/18/17 19:58 Assess/Plan/Problems-Billing Assessment: Ms. Hernandez is a 46 yo female with a PMH of prediabetes, Bon's thyroiditis , asthma, celiac disease, neuropathy of the feet, ?sarcoidosis of the lung (not confirmed by biopsy, and MRSA in leg wound and sinuses who presented to the ED on 03/18 with concern for worsening cellulitis that has not responded to outpatient clindamycin. - Patient Problems (1) Cellulitis Code(s): L03.90 - CELLULITIS, UNSPECIFIED Comment: To left gluteal fold, extending to labia Failed outpatient clindamycin Attempted to obtain culture from wound drainage, results pending Blood cx pending Pelvic CT shows no drainable abscesses Continue cefepime, vancomycin Appreciate ID consult (2) Neuropathy Code(s): G62.9 - POLYNEUROPATHY, UNSPECIFIED Comment: Stable Continue home gabapentin. (3) Asthma Code(s): J45.909 - UNSPECIFIED ASTHMA, UNCOMPLICATED Comment: Stable Continue home Advair and prn albuterol. (4) Bon's thyroiditis Current Visit: No Status: Acute Code(s): E06.3 - AUTOIMMUNE THYROIDITIS Comment: Continue levothyroxine. (5) Diabetes Current Visit: No Code(s): E11.9 - TYPE 2 DIABETES MELLITUS WITHOUT COMPLICATIONS Comment: Continue Lispro SSI Check HgbA1c Home metformin on hold. (6) Sarcoidosis Code(s): D86.9 - SARCOIDOSIS, UNSPECIFIED Comment: Continue Otezla Continue outpatient f/u with rheumatology and immunology (7) DVT prophylaxis Comment: SQ heparin Status and Disposition: OBV admit. Plan for dc to home when medically stable.
[2017-03-19] MEDS: Famotidine TAB* 20 MG PO SCH (18:36)
[2017-03-19] MEDS: Oxybutynin XL TAB* 5 MG PO SCH (18:38)
[2017-03-19] MEDS ORDERED: APREMILAST 30 MG PO SCH (21:00)
[2017-03-19] MEDS: Mometasone/Formoter 200/5 MDI INH SCH (21:04)
[2017-03-19] MEDS: metroNIDAZOLE TAB* 250 MG PO SCH (21:32)
[2017-03-19] MEDS: Gabapentin CAP(*) 100 MG PO SCH (21:32)
--- NOTE | 2017-03-19 21:41 | CONS ---
CONSULTATION REPORT: DATE OF CONSULTATION: 03/19/17 REQUESTING PHYSICIAN: Nguyen Del Cid NP CONSULTING SERVICE: Infectious Disease. REASON FOR CONSULTATION: Left groin cellulitis. IMPRESSION: 1. Left groin cellulitis, plus or minus phlegmon and early abscess. No drainable collection. There are couple of more superficial boils on the overall area, which has drained some purulent fluids spontaneously without evidence of a deeper collection on CT or by exam today. Gram stain from the fluid shows Gram-positive cocci in chains. It could be strep. This area is often polymicrobial as well. 2. Ill-defined autoimmune or autoinflammatory condition, on some immunosuppression including Plaquenil. 3. Prediabetes, rule out diabetes. 4. Obesity. RECOMMENDATIONS: 1. Continue vancomycin, goal trough 10 to 15, changed cefepime to ceftriaxone 2 g daily and start Flagyl 500 mg by mouth 3 times a day. We discussed over the next couple of days, this may coalesce into an abscess, it does need draining, but it will be a couple of days before we know that. 2. Check a hemoglobin A1c. HISTORY OF PRESENT ILLNESS: This is a 46-year-old woman admitted with left groin pain for a few days. It started as a large boil on the left groin below the labia. It drained a little bit. She kept it clean, but then it re- accumulated, became more painful. She was seen in the ER on the . Blood cultures were sent, were negative. She was discharged on clindamycin after an attempt to drain it revealed no further fluid. She came back to the hospital last night with worsening of her symptoms including chills and sweats. She was started on vancomycin and cefepime. She had low-grade fevers overnight, but cultures were sent and are pending. The pain is a little better with pain medications. CT of the pelvis was done that showed no abscess in that area. She has not had the infection like this in the past. She has had previous MRSA infection. PAST MEDICAL HISTORY: 1. Possible autoimmune or autoinflammatory condition with a question of sarcoidosis. 2. Peripheral neuropathy. 3. Bon's thyroiditis. 4. Prediabetes. 5. Asthma. 6. Celiac disease. 7. History of MRSA in a leg wound and in sinuses. 8. Status post appendectomy. 9. Status post excision of ovarian cyst. 10. Surgery for deviated septum. 11. Status post sinus surgery, 2014 and 2017. 12. Status post tonsillectomy. MEDICATIONS: 1. Otezla. 2. Tylenol. 3. Azithromycin 500 mg daily. 4. Gabapentin. 5. Fluticasone nasal spray. 6. Plaquenil. 7. Levothyroxine. 8. Naproxen. 9. Omeprazole. 10. Oxybutynin. 11. Cefepime 2 g every 12 hours. 12. Vancomycin 1250 mg every 8 hours. ALLERGIES: LATEX, EFFEXOR, KETOROLAC, MORPHINE, COMPAZINE, SULFA, PREDNISONE, SCALLOPS, and VISTARIL. SOCIAL HISTORY: Nonsmoker, no injection drugs. She lives in the area. Lot of her doctors are in [place]. FAMILY HISTORY: Mother with coronary artery disease, father had diabetes. REVIEW OF SYSTEMS: All negative to a full review of systems except as noted above. PHYSICAL EXAM: Vital Signs: Temperature 37, heart rate 90, respiratory rate 16 , blood pressure 122/68, O2 sat 95% on room air. In general, she is awake, in no distress. HEENT: There is no conjunctival hemorrhage. Oropharynx is without lesions. Neck is supple without rigidity. Lymph Nodes: There is no inguinal, axillary, or epitrochlear lymphadenopathy. Heart: Regular rate and rhythm without murmurs, rubs, or gallops. Lungs: Clear to auscultation bilaterally. Neurologic: She is oriented x3. Follows all commands. Moves all her extremities. Abdomen: Soft, nontender, nondistended. There are bowel sounds present. Skin: There are no rashes or splinter hemorrhages. Genitourinary: The labia without inflammation or erythema. Inferior to the labia and into the left groin, there is diffuse erythema, warmth, tenderness without fluctuance or crepitus. There are couple of small boils that have drained spontaneously on the surface. LABORATORY DATA: Creatinine 0.7, CRP 160. White blood cell count 14, hemoglobin 11, platelets 311. Please see impressions and recommendations as outlined above. Thank you for asking me to see Ms. Hernandez in consultation. [id number]/[facility] #: [id number] [facility]
[2017-03-20] MEDS: Vancomycin(*) 1,250 MG in NS 0.9% 250 ML* 250 ML IVPB SCH ×3 (01:08→18:14)
[2017-03-20] MEDS: Heparin VIAL(*) 5000 UNITS/ML VIAL (FIVE THOUSAND) SUBCUT SCH ×3 (05:53→21:32)
[2017-03-20] MEDS: [UNRECOGNIZED DRUG - OTHER] TOPICAL PRN ×2 (05:53→21:31)
[2017-03-20] MEDS: Levothyroxine TAB* 150 MCG TAB PO SCH (05:53)
[2017-03-20] MEDS: Ondansetron ODT TAB* 4 MG PO PRN (06:00)
[2017-03-20] MEDS: Hydroxychloroquine TAB* 200 MG PO SCH (07:46)
[2017-03-20] MEDS: Azithromycin TAB* 250 MG PO SCH (07:46)
[2017-03-20] MEDS: Omeprazole CAP* 20 MG PO SCH (07:47)
[2017-03-20] MEDS: Naproxen TAB* 250 MG PO SCH ×2 (07:47→17:53)
[2017-03-20] MEDS: metroNIDAZOLE TAB* 250 MG PO SCH ×3 (07:48→21:31)
[2017-03-20] MEDS: Fluticasone NASAL SPRAY 50MCG* 16 gm SPRAY BTL BOTH NARES SCH (07:49)
[2017-03-20] MEDS: Mometasone/Formoter 200/5 MDI INH SCH ×2 (07:49→20:32)
[2017-03-20] MEDS: APREMILAST 30 MG PO SCH ×3 (07:54→18:08)
[2017-03-20] MEDS: Insulin LISPRO* 1 UNITS UNIT SUBCUT SCH ×3 (07:56→17:59)
[2017-03-20] MEDS ORDERED: Vancomycin Trough Check NOTE FOLLOW UP ONE (09:00)
[2017-03-20] MEDS: Acetaminop/Codeine 30 MG TAB* 1 TAB (300 MG/30 MG) PO PRN ×2 (09:57→17:55)
--- NOTE | 2017-03-20 11:50 | PN ---
Progress Note - Progress Note Date of Service: 03/20/17 SOAP: Subjective: CC: cellulitis HPI: 46 yo woman with left groin cellulitis, pain improving, the area that drained on its own stopped draining. No fever, chills, rash, diarrhea. Appetite is good. Objective: [] Vital Signs Temp 36.9 C 03/20/17 07:48 Pulse 83 03/20/17 07:48 Resp 17 03/20/17 09:57 BP 115/68 03/20/17 07:48 Pulse Ox 97 03/20/17 07:48 Intake & Output 03/19/17 03/20/17 03/20/17 18:59 06:59 18:59 Intake Total 1177 1699 200 Output Total 1600 1500 200 Balance -423 199 0 Intake: IV Fluids 265 IVPB 412 299 Oral 500 1400 200 Output: Urine 1600 1500 200 Other: Estimated Stool Amount Large Gen:awake, no distress HEENT:PERRL, MMM Neck:supple Heart:RRR no murmur Lungs:CTA BL Abd:+BS soft, NTND Skin: on left lower anterior leg there is a patch of erythema on atrophic skin : L labia edema and more distal area through perineum and left buttock mild erythema, edema, warmth, no crepitus Laboratory Results - last 24 hr 03/19/17 03/19/17 03/20/17 05:52 17:34 07:19 POC Glucose (mg/dL) 154 H 113 H Hemoglobin A1c 5.9 Vancomycin Trough 03/20/17 09:21 POC Glucose (mg/dL) Hemoglobin A1c Vancomycin Trough 11.8 Assessment: 1. left labia/groin/leg cellulitis, likely strep, improving 2. obesity 3. pre diabetes 4. R leg rash ?psosiasis or dermatitis w atrophy from steroid use doubt ECM Plan: 1. continue vancomycin goal tr 15-20, ceftriaxone, flagyl; will await culture taken 03/19. Discussed with Nguyen Del Cid NP
--- NOTE | 2017-03-20 12:09 | PN ---
Subjective Date of Service: 03/20/17 Interval History: Patient seen and examined at bedside Reports feeling better overall and denies fever/chills overnight. No further drainage or extension of affected area Has been able to walk around within room but reports discomfort at site of cellulitis with walking. Family History: Unchanged from Admission Social History: Unchanged from Admission Past Medical History: Unchanged from Admission Objective Active Medications: Acetaminophen/Codeine Phosphate (Tylenol/Codeine 30 Mg Tab*) 1 tab PO Q4HR PRN PRN Reason: PAIN Last Admin: 03/20/17 09:57 Dose: 1 tab Albuterol (Ventolin Hfa Inhaler*) 2 puff INH QID PRN PRN Reason: asthma Apremilast (Otezla (Nf)) 30 mg PO 0800,1700 [facility] Last Admin: 03/20/17 07:54 Dose: 30 mg Azithromycin (Zithromax Tab*) 500 mg PO DAILY [facility] Last Admin: 03/20/17 07:46 Dose: 500 mg Dextrose (D50w Syringe 50 Ml*) 12.5 gm IV PUSH .FOR FS < 60 - SS PRN PRN Reason: FS < 60 Famotidine (Pepcid Tab*) 40 mg PO QPM [facility] Last Admin: 03/19/17 18:36 Dose: 40 mg Fluticasone Propionate (Flonase Nasal [place] 50mcg*) 1 spray BOTH NARES DAILY [facility] Last Admin: 03/20/17 07:49 Dose: 1 spray Gabapentin (Neurontin Cap(*)) 200 mg PO BEDTIME [facility] Last Admin: 03/19/17 21:32 Dose: 200 mg Heparin Sodium (Porcine) (Heparin Vial(*)) 5,000 units SUBCUT Q8HR [facility] Last Admin: 03/20/17 05:53 Dose: 5,000 units Heparin Sodium (Porcine) (Heparin Flush Picc/Ml/Cvc(*)) 1 - 3 ml FLUSH 0600, 1800 [facility] PRN Reason: Protocol Hydroxychloroquine Sulfate (Plaquenil Tab*) 400 mg PO DAILY [facility] Last Admin: 03/20/17 07:46 Dose: 400 mg Sodium Chloride (Ns 0.9% 1000 Ml*) 1,000 mls @ 75 mls/hr IV PER RATE [facility] Last Admin: 03/19/17 21:37 Dose: 75 mls/hr Vancomycin HCl 1,250 mg/ (Sodium Chloride) 250 mls @ 166.667 mls/hr IVPB Q8H [facility] Last Admin: 03/20/17 09:58 Dose: 166.667 mls/hr Ceftriaxone Sodium 2 gm/ (Sodium Chloride) 100 mls @ 200 mls/hr IVPB Q24H [facility] Last Admin: 03/19/17 15:15 Dose: 200 mls/hr Insulin Human Lispro (Humalog*) 0 - 10 units SUBCUT AC [facility] PRN Reason: Protocol Last Admin: 03/20/17 07:56 Dose: Not Given Levothyroxine Sodium (Synthroid Tab*) 150 mcg PO 0600 [facility] Last Admin: 03/20/17 05:53 Dose: 150 mcg Metronidazole (Flagyl Tab*) 500 mg PO TID [facility] Last Admin: 03/20/17 07:48 Dose: 500 mg Mometasone Furoate/Formoterol Fumar (Dulera 200/5 Mdi*) 2 puff INH BID [facility] PRN Reason: Protocol Last Admin: 03/20/17 07:49 Dose: 2 puff Naproxen (Naprosyn Tab*) 500 mg PO 0800,1700 [facility] Last Admin: 03/20/17 07:47 Dose: 500 mg Pto: Ashlyna 0.15-0. (03 &0.01 Mg 1 Tab)) 1 tab PO BEDTIME [facility] Last Admin: 03/19/17 21:34 Dose: 1 tab Pto: Emuaid Cream 1 dose TOPICAL BID PRN PRN Reason: PROVIDER DISCRETION Last Admin: 03/20/17 05:53 Dose: 1 dose Omeprazole (Prilosec Cap*) 40 mg PO DAILY [facility] Last Admin: 03/20/17 07:47 Dose: 40 mg Ondansetron HCl (Zofran Odt Tab*) 4 mg PO Q8H PRN PRN Reason: NAUSEA/VOMITING Last Admin: 03/20/17 06:00 Dose: 4 mg Oxybutynin Chloride (Ditropan Xl Tab*) 10 mg PO QPM [facility] Last Admin: 03/19/17 18:38 Dose: 10 mg Pharmacy Consult (Vancomycin Per Pharmacy*) 1 note FOLLOW UP . PRN PRN Reason: PER PROTOCOL Vital Signs 03/19/17 03/19/17 03/19/17 15:21 16:17 17:21 Temperature 98.3 F Pulse Rate 98 Respiratory 17 16 16 Rate Blood Pressure 146/80 (mmHg) O2 Sat by Pulse 97 Oximetry 03/19/17 03/19/17 03/19/17 19:47 20:03 21:32 Temperature 98.8 F Pulse Rate 92 Respiratory 16 17 16 Rate Blood Pressure 131/69 (mmHg) O2 Sat by Pulse 97 Oximetry 03/19/17 03/19/17 03/20/17 23:32 23:57 03:55 Temperature 97.9 F 98.1 F Pulse Rate 85 89 Respiratory 16 20 18 Rate Blood Pressure 101/51 109/62 (mmHg) O2 Sat by Pulse 94 97 Oximetry 03/20/17 03/20/17 03/20/17 07:48 08:00 09:57 Temperature 98.5 F Pulse Rate 83 Respiratory 15 17 17 Rate Blood Pressure 115/68 (mmHg) O2 Sat by Pulse 97 Oximetry 03/20/17 11:45 Temperature 98.3 F Pulse Rate 83 Respiratory 15 Rate Blood Pressure 126/78 (mmHg) O2 Sat by Pulse 97 Oximetry Oxygen Devices in Use Now: None Appearance: Female patient, lying in bed, in NAD Eyes: No Scleral Icterus Ears/Nose/Mouth/Throat: Mucous Membranes Moist Neck: NL Appearance and Movements; NL JVP Respiratory: Symmetrical Chest Expansion and Respiratory Effort, Clear to Auscultation Cardiovascular: NL Sounds; No Murmurs; No JVD, RRR Abdominal: NL Sounds; No Tenderness; No Distention Extremities: No Clubbing, Cyanosis, - - patchy erythema with abrasions to bilateral shins, L>R Skin: - - left labial erythema with open, non-draining area; edema and erythema extends to perineum Neurological: Alert and Oriented x 3 Lines/Tubes/Other Access: Clean, Dry and Intact PICC Line Nutrition: Taking PO's Result Diagrams: 03/19/17 05:52 03/18/17 19:58 Microbiology and Other Data: Microbiology 03/19/17 13:00 Gram Stain - Final Buttock Assess/Plan/Problems-Billing Assessment: Ms. Hernandez is a 46 yo female with a PMH of prediabetes, Bon's thyroiditis , asthma, celiac disease, neuropathy of the feet, ?sarcoidosis of the lung (not confirmed by biopsy, and MRSA in leg wound and sinuses who presented to the ED on 03/18 with concern for worsening cellulitis that has not responded to outpatient clindamycin. - Patient Problems (1) Cellulitis Code(s): L03.90 - CELLULITIS, UNSPECIFIED Comment: To left gluteal fold, extending to labia Failed outpatient clindamycin Wound culture growing strep, final results pending Blood cx with no growth so far Pelvic CT shows no drainable abscesses Continue vancomycin, ceftriaxone, metronidazole Appreciate ID consult (2) Neuropathy Code(s): G62.9 - POLYNEUROPATHY, UNSPECIFIED Comment: Stable Continue home gabapentin. (3) Asthma Code(s): J45.909 - UNSPECIFIED ASTHMA, UNCOMPLICATED Comment: Stable Continue Dulera (therapeutic sub for home Advair) and prn albuterol. (4) Bon's thyroiditis Current Visit: No Status: Acute Code(s): E06.3 - AUTOIMMUNE THYROIDITIS Comment: Continue levothyroxine. (5) Diabetes Current Visit: No Code(s): E11.9 - TYPE 2 DIABETES MELLITUS WITHOUT COMPLICATIONS Comment: Continue Lispro SSI HgbA1c 5.9 Home metformin on hold. (6) Sarcoidosis Code(s): D86.9 - SARCOIDOSIS, UNSPECIFIED Comment: Continue Otezla Continue outpatient f/u with rheumatology and immunology (7) DVT prophylaxis Comment: SQ heparin Status and Disposition: Inpatient admit. Plan for dc to home when medically stable.
[2017-03-20] MEDS: NS 0.9% 1000 ML* 1,000 ML IV SCH (13:49)
[2017-03-20] MEDS: Famotidine TAB* 20 MG PO SCH (17:52)
[2017-03-20] MEDS: Oxybutynin XL TAB* 5 MG PO SCH (18:00)
[2017-03-20] MEDS: ETHINYL ESTRADIOL PO SCH (21:32)
[2017-03-20] MEDS: LEVONORGESTREL PO SCH (21:32)
[2017-03-20] MEDS: Gabapentin CAP(*) 100 MG PO SCH (21:32)
[2017-03-21] MEDS: Acetaminop/Codeine 30 MG TAB* 1 TAB (300 MG/30 MG) PO PRN ×2 (00:09→17:09)
[2017-03-21] MEDS: Vancomycin(*) 1,250 MG in NS 0.9% 250 ML* 250 ML IVPB SCH ×2 (00:10→09:32)
[2017-03-21] MEDS: Levothyroxine TAB* 150 MCG TAB PO SCH (05:28)
[2017-03-21] MEDS: Heparin VIAL(*) 5000 UNITS/ML VIAL (FIVE THOUSAND) SUBCUT SCH ×3 (05:28→21:51)
[2017-03-21 05:58] LABS: C Reactive Protein 110.75 mg/L (< 5.00); Calcium 8.5 mg/dL (8.6-10.3); EGFR African American 143.9 (>60); EGFR Non-African American 111.9 (>60)
[2017-03-21 06:52] LABS: Hematocrit 31 % (35-47); Hemoglobin 10.2 g/dl (12.0-16.0); Mean Corpuscular HGB Conc 33 g/dl (31-36); Mean Corpuscular Hemoglobin 26 pg (27-31); Mean Corpuscular Volume 79 fL (80-97); Mean Platelet Volume 8 um3 (7.4-10.4); Red Blood Count 3.91 10^6/ul (4.0-5.4); Red Cell Distribution Width 14 % (10.5-15); White Blood Count 8.5 10^3/ul (3.5-10.8)
--- NOTE | 2017-03-21 07:31 | PN ---
Subjective Date of Service: 03/21/17 Interval History: Patient was a CAT and Code [place] this morning, last seen normal at 6:21 am. Per the nursing notes and staff, the patient was c/o a "weird headache" that she now describes as being behind her right eye with accompanying right arm numbness. She was noted to be dry heaving and then had reported shaking. Following the event, the patient was confused and had limited motion of her right arm. CT brain was negative for acute pathology. Following the event, Ms. Hernandez still endorses the headache and pain to her right arm. She reports that her right side feels numb. NIHSS was conducted ( please see neuro notes). In regards to her cellulitis, she states that it was "really getting better" yesterday. Denies CP, SOB. EKG: NSR with no ischemic changes BG 108 Family History: Unchanged from Admission Social History: Unchanged from Admission Past Medical History: Unchanged from Admission Objective Active Medications: Acetaminophen/Codeine Phosphate (Tylenol/Codeine 30 Mg Tab*) 1 tab PO Q4HR PRN PRN Reason: PAIN Last Admin: 03/21/17 00:09 Dose: 1 tab Albuterol (Ventolin Hfa Inhaler*) 2 puff INH QID PRN PRN Reason: asthma Apremilast (Otezla (Nf)) 30 mg PO 0800,1700 [facility] Last Admin: 03/20/17 18:08 Dose: 30 mg Azithromycin (Zithromax Tab*) 500 mg PO DAILY [facility] Last Admin: 03/20/17 07:46 Dose: 500 mg Dextrose (D50w Syringe 50 Ml*) 12.5 gm IV PUSH .FOR FS < 60 - SS PRN PRN Reason: FS < 60 Famotidine (Pepcid Tab*) 40 mg PO QPM [facility] Last Admin: 03/20/17 17:52 Dose: 40 mg Fluticasone Propionate (Flonase Nasal [place] 50mcg*) 1 spray BOTH NARES DAILY [facility] Last Admin: 03/20/17 07:49 Dose: 1 spray Gabapentin (Neurontin Cap(*)) 200 mg PO BEDTIME [facility] Last Admin: 03/20/17 21:32 Dose: 200 mg Heparin Sodium (Porcine) (Heparin Vial(*)) 5,000 units SUBCUT Q8HR [facility] Last Admin: 03/21/17 05:28 Dose: 5,000 units Heparin Sodium (Porcine) (Heparin Flush Picc/Ml/Cvc(*)) 1 - 3 ml FLUSH 0600, 1800 [facility] PRN Reason: Protocol Last Admin: 03/21/17 05:30 Dose: Not Given Hydroxychloroquine Sulfate (Plaquenil Tab*) 400 mg PO DAILY [facility] Last Admin: 03/20/17 07:46 Dose: 400 mg Vancomycin HCl 1,250 mg/ (Sodium Chloride) 250 mls @ 166.667 mls/hr IVPB Q8H [facility] Last Admin: 03/21/17 00:10 Dose: 166.667 mls/hr Ceftriaxone Sodium 2 gm/ (Sodium Chloride) 100 mls @ 200 mls/hr IVPB Q24H [facility] Last Admin: 03/20/17 15:28 Dose: 200 mls/hr Insulin Human Lispro (Humalog*) 0 - 10 units SUBCUT AC [facility] PRN Reason: Protocol Last Admin: 03/20/17 17:59 Dose: 1 unit Levothyroxine Sodium (Synthroid Tab*) 150 mcg PO 0600 [facility] Last Admin: 03/21/17 05:28 Dose: 150 mcg Metronidazole (Flagyl Tab*) 500 mg PO TID [facility] Last Admin: 03/20/17 21:31 Dose: 500 mg Mometasone Furoate/Formoterol Fumar (Dulera 200/5 Mdi*) 2 puff INH BID [facility] PRN Reason: Protocol Last Admin: 03/20/17 20:32 Dose: 2 puff Naproxen (Naprosyn Tab*) 500 mg PO 0800,1700 [facility] Last Admin: 03/20/17 17:53 Dose: 500 mg Pto: Ashlyna 0.15-0. (03 &0.01 Mg 1 Tab)) 1 tab PO BEDTIME [facility] Last Admin: 03/20/17 21:32 Dose: 1 tab Pto: Emuaid Cream 1 dose TOPICAL BID PRN PRN Reason: PROVIDER DISCRETION Last Admin: 03/20/17 21:31 Dose: 1 dose Omeprazole (Prilosec Cap*) 40 mg PO DAILY [facility] Last Admin: 03/20/17 07:47 Dose: 40 mg Ondansetron HCl (Zofran Odt Tab*) 4 mg PO Q8H PRN PRN Reason: NAUSEA/VOMITING Last Admin: 03/20/17 06:00 Dose: 4 mg Oxybutynin Chloride (Ditropan Xl Tab*) 10 mg PO QPM [facility] Last Admin: 03/20/17 18:00 Dose: 10 mg Pharmacy Consult (Vancomycin Per Pharmacy*) 1 note FOLLOW UP . PRN PRN Reason: PER PROTOCOL Pharmacy Profile Note (Vancomycin Trough Check) 1 note FOLLOW UP 0830 ONE Stop: 03/22/17 08:31 Vital Signs 03/20/17 03/20/17 03/20/17 07:48 08:00 09:57 Temperature 98.5 F Pulse Rate 83 Respiratory 15 17 17 Rate Blood Pressure 115/68 (mmHg) O2 Sat by Pulse 97 Oximetry 03/20/17 03/20/17 03/20/17 11:45 11:57 13:57 Temperature 98.3 F Pulse Rate 83 Respiratory 15 17 17 Rate Blood Pressure 126/78 (mmHg) O2 Sat by Pulse 97 Oximetry 03/20/17 03/20/17 03/20/17 15:23 17:55 19:17 Temperature 98.2 F 98.5 F Pulse Rate 84 92 Respiratory 21 16 18 Rate Blood Pressure 136/62 136/75 (mmHg) O2 Sat by Pulse 98 98 Oximetry 03/20/17 03/20/17 03/20/17 19:55 20:26 21:32 Temperature Pulse Rate Respiratory 16 16 18 Rate Blood Pressure (mmHg) O2 Sat by Pulse Oximetry 03/20/17 03/20/17 03/20/17 23:27 23:32 23:36 Temperature 98.0 F Pulse Rate 87 Respiratory 16 18 Rate Blood Pressure 87/43 112/72 (mmHg) O2 Sat by Pulse 97 Oximetry 03/21/17 03/21/17 03/21/17 00:09 02:09 03:25 Temperature 98.0 F Pulse Rate 74 Respiratory 18 18 14 Rate Blood Pressure 83/43 (mmHg) O2 Sat by Pulse 96 Oximetry 03/21/17 03:35 Temperature Pulse Rate Respiratory Rate Blood Pressure 110/70 (mmHg) O2 Sat by Pulse Oximetry Oxygen Devices in Use Now: None Appearance: Female patient, lying in bed, mildly disoriented but mostly responding appropriately Eyes: PERRLA Ears/Nose/Mouth/Throat: Clear Oropharnyx, Mucous Membranes Moist Neck: NL Appearance and Movements; NL JVP Respiratory: Symmetrical Chest Expansion and Respiratory Effort, Clear to Auscultation Cardiovascular: NL Sounds; No Murmurs; No JVD, RRR - mildly tachycardic Abdominal: NL Sounds; No Tenderness; No Distention Extremities: No Edema Skin: - - LLE erythema to ochoa, left labial cellulitis extending to perineum - unable to visualize cellulitis secondary to stool incontinence Neurological: Alert and Oriented x 3 Lines/Tubes/Other Access: Clean, Dry and Intact PICC Line Result Diagrams: 03/21/17 06:21 03/21/17 05:31 Microbiology and Other Data: Microbiology 03/19/17 13:00 Gram Stain - Final Buttock Diagnostic Imaging: CT Brain, 03/21 FINDINGS: The ventricles, cisterns and sulci are within normal limits. No significant focal abnormality or mass effect is seen. There is no evidence for hemorrhage. The patient appears to be status post paranasal sinus surgery. There is mild mucosal thickening within the maxillary and ethmoid air cells. The frontal and sphenoid sinuses appear clear. The mastoid air cells appear clear. The results of this exam were called to the referring clinician at 0733 hours. IMPRESSION: NO EVIDENCE FOR GROSS ACUTE INFARCT, MASS EFFECT OR HEMORRHAGE. Assess/Plan/Problems-Billing Assessment: Ms. Hernandez is a 46 yo female with a PMH of prediabetes, Bon's thyroiditis , asthma, celiac disease, neuropathy of the feet, ?sarcoidosis of the lung (not confirmed by biopsy, and MRSA in leg wound and sinuses who presented to the ED on 03/18 with concern for worsening cellulitis that has not responded to outpatient clindamycin. - Patient Problems (1) Altered mental state Code(s): R41.82 - ALTERED MENTAL STATUS, UNSPECIFIED Comment: Code [place] this AM with concern for YEE, ? of right sided weakness, and shaking Question of seizure activity vs psychogenic seizure, ?complex migraine (given YEE ) Appreciate neurology consult and input Plan for EEG and MRI brain today Continue to monitor on telemetry Neuro checks q2h (2) Cellulitis Code(s): L03.90 - CELLULITIS, UNSPECIFIED Comment: To left gluteal fold, extending to labia Failed outpatient clindamycin Wound culture growing strep, final results pending Blood cx with no growth so far Pelvic CT shows no drainable abscesses Continue vancomycin, ceftriaxone, metronidazole Appreciate ID consult (3) Neuropathy Code(s): G62.9 - POLYNEUROPATHY, UNSPECIFIED Comment: Stable Continue home gabapentin. (4) Asthma Code(s): J45.909 - UNSPECIFIED ASTHMA, UNCOMPLICATED Comment: Stable Continue Dulera (therapeutic sub for home Advair) and prn albuterol. (5) Bon's thyroiditis Current Visit: No Status: Acute Code(s): E06.3 - AUTOIMMUNE THYROIDITIS Comment: Continue levothyroxine. (6) Diabetes Current Visit: No Code(s): E11.9 - TYPE 2 DIABETES MELLITUS WITHOUT COMPLICATIONS Comment: Continue Lispro SSI HgbA1c 5.9 Home metformin on hold. (7) Sarcoidosis Code(s): D86.9 - SARCOIDOSIS, UNSPECIFIED Comment: Continue Otezla Continue outpatient f/u with rheumatology and immunology (8) DVT prophylaxis Comment: SQ heparin Status and Disposition: Inpatient admit. Mother updated with acute change. Discharge planning pending results of neurology workup. Counseling and/or Coordination of Care Minutes: 60
--- NOTE | 2017-03-21 07:49 | RAD ---
INDICATION: Neurologic changes, code kimble. COMPARISON: Comparison is made with prior MRI of the brain from October 19, 2014. TECHNIQUE: Contiguous axial sections of the brain were obtained from the skull base to the vertex without contrast. FINDINGS: The ventricles, cisterns and sulci are within normal limits. No significant focal abnormality or mass effect is seen. There is no evidence for hemorrhage. The patient appears to be status post paranasal sinus surgery. There is mild mucosal thickening within the maxillary and ethmoid air cells. The frontal and sphenoid sinuses appear clear. The mastoid air cells appear clear. The results of this exam were called to the referring clinician at 0733 hours. IMPRESSION: NO EVIDENCE FOR GROSS ACUTE INFARCT, MASS EFFECT OR HEMORRHAGE.
[2017-03-21] MEDS: Insulin LISPRO* 1 UNITS UNIT SUBCUT SCH ×3 (08:13→17:03)
[2017-03-21] MEDS: Mometasone/Formoter 200/5 MDI INH SCH ×2 (08:22→19:45)
[2017-03-21 08:53] LABS: Hematocrit 33 % (35-47); Hemoglobin 10.9 g/dl (12.0-16.0); Mean Corpuscular HGB Conc 33 g/dl (31-36); Mean Corpuscular Hemoglobin 26 pg (27-31); Mean Corpuscular Volume 79 fL (80-97); Mean Platelet Volume 8 um3 (7.4-10.4); Red Cell Distribution Width 14 % (10.5-15); White Blood Count 9.6 10^3/ul (3.5-10.8)
[2017-03-21] MEDS ORDERED: Perflutren Lipid Microsphere* 3 ML VIAL ONE (09:07)
[2017-03-21] MEDS: Azithromycin TAB* 250 MG PO SCH (09:32)
[2017-03-21] MEDS: APREMILAST 30 MG PO SCH ×2 (09:32→19:25)
[2017-03-21] MEDS: Omeprazole CAP* 20 MG PO SCH (09:32)
[2017-03-21] MEDS: metroNIDAZOLE TAB* 250 MG PO SCH ×3 (09:32→21:49)
[2017-03-21] MEDS: Hydroxychloroquine TAB* 200 MG PO SCH (09:32)
[2017-03-21] MEDS: Fluticasone NASAL SPRAY 50MCG* 16 gm SPRAY BTL BOTH NARES SCH (09:32)
[2017-03-21 09:59] LABS: Cholesterol 151 mg/dL; HDL Cholesterol 43.6 mg/dL; LDL Cholesterol 82 mg/dL; Triglycerides 127 mg/dL
[2017-03-21] MEDS: Naproxen TAB* 250 MG PO SCH ×3 (10:04→17:58)
--- NOTE | 2017-03-21 10:22 | PN ---
Progress Note - Progress Note Date of Service: 03/21/17 SOAP: Subjective: CC: cellulitis HPI: 46 yo woman with left groin cellulitis, pain improving, the area that drained on its own stopped draining. No fever, chills, rash, diarrhea. Appetite is good. Unilateral headache developed this morning with right arm movement changes; neurologic evaluation pending. Objective: [] Vital Signs Temp 36.6 C 03/21/17 08:51 Pulse 88 03/21/17 10:00 Resp 18 03/21/17 10:00 BP 145/90 03/21/17 10:00 Pulse Ox 95 03/21/17 10:00 Intake & Output 03/20/17 03/21/17 03/21/17 18:59 06:59 18:59 Intake Total 320 2335 Output Total 1300 1000 675 Balance -980 1335 -675 Intake: IV Fluids 193 ns kvo 193 IVPB 295 vanco 295 Oral 320 1847 Output: Urine 1300 1000 675 Other: # Bowel Movements 0 Estimated Stool Amount Large Gen:awake, no distress HEENT:PERRL, MMM Neck:supple Heart:RRR no murmur Lungs:CTA BL Abd:+BS soft, NTND Skin: on left lower anterior leg there is a patch of erythema on atrophic skin : L labia mild edema and more distal area through perineum and left buttock edema, warmth, no crepitus, decreasing erythema Laboratory Results - last 24 hr 03/20/17 03/20/17 03/20/17 08:32 12:20 16:44 WBC 9.6 RBC 4.20 Hgb 10.9 L Hct 33 L MCV 79 L MCH 26 L MCHC 33 RDW 14 Plt Count 374 MPV 8 Neut % (Auto) 70.3 Lymph % (Auto) 17.3 L Sublette % (Auto) 5.4 Eos % (Auto) 5.7 Baso % (Auto) 1.3 Absolute Neuts (auto) 6.7 Absolute Lymphs (auto) 1.7 Absolute Monos (auto) 0.5 Absolute Eos (auto) 0.6 Absolute Basos (auto) 0.1 Absolute Nucleated RBC 0 Nucleated RBC % 0 Sodium Potassium Chloride Carbon Dioxide Anion Gap BUN Creatinine Est GFR ( Amer) Est GFR (Non-Af Amer) BUN/Creatinine Ratio Glucose POC Glucose (mg/dL) 112 H 143 H Calcium C-Reactive Protein Triglycerides Cholesterol LDL Cholesterol HDL Cholesterol 03/21/17 03/21/17 03/21/17 05:31 06:21 09:16 WBC 8.5 RBC 3.91 L Hgb 10.2 L Hct 31 L MCV 79 L MCH 26 L MCHC 33 RDW 14 Plt Count 315 MPV 8 Neut % (Auto) 60.8 Lymph % (Auto) 23.5 L Sublette % (Auto) 7.4 Eos % (Auto) 7.8 H Baso % (Auto) 0.5 Absolute Neuts (auto) 5.2 Absolute Lymphs (auto) 2.0 Absolute Monos (auto) 0.6 Absolute Eos (auto) 0.7 H Absolute Basos (auto) 0 Absolute Nucleated RBC 0.02 Nucleated RBC % 0.2 Sodium 135 Potassium 4.0 Chloride 106 Carbon Dioxide 22 Anion Gap 7 BUN 11 Creatinine 0.58 Est GFR ( Amer) 143.9 Est GFR (Non-Af Amer) 111.9 BUN/Creatinine Ratio 19.0 Glucose 106 H POC Glucose (mg/dL) Calcium 8.5 L C-Reactive Protein 110.75 H Triglycerides 127 Cholesterol 151 LDL Cholesterol 82 HDL Cholesterol 43.6 Assessment: 1. left labia/groin/leg cellulitis, strep intermedius, continues to improve 2. obesity 3. pre diabetes 4. R leg rash ?psosiasis or dermatitis w atrophy from steroid use doubt ECM Plan: 1. DC vancomycin, continue ceftriaxone, flagyl; US today to evaluate for abscess formation. Discussed with Nguyen Del Cid NP
[2017-03-21 10:27] LABS: TSH (Thyroid Stimulating Horm) 1.42 mcIU/mL (0.34-5.60)
[2017-03-21 10:40] LABS: Folate 4.63 ng/mL (>3.99)
[2017-03-21 10:41] LABS: Vitamin B12 > 1450 pg/mL (180-914)
[2017-03-21] MEDS: Ondansetron ODT TAB* 4 MG PO PRN ×2 (11:02→17:07)
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
--- NOTE | 2017-03-21 12:29 | ECHO ---
Patient: AMBER JARAMILLO [facility] Rec#: [id number] : 1970 Date: 03/21/2017 Age: 46y Height: 175.26 cm / 69.0 in Weight: 136.08 kg / 299.9 lbs Sex: F BSA: 2.45 Room#: ICU 11 Admit Date#: 03/19/2017 Type: Inpatient Referring: Sid Her Reading: Apolinar Sanabria MD Nurse Orthopedic: Millie Nina RDCS,RDMS CC: Wes Hein MD CC: ISAURO SMITH Transthoracic Echocardiogram Indication: CVA, TIA BP: 142/70 HR: 85 Rhythm: NSR Findings History: DM, asthma, possible sarcoidosis opf the lung, cellulitis Technical Comments: The study is technically limited due to poor acoustic windows. Completed 0940 Left Ventricle: The left ventricular chamber size is mildly dilated. Mild concentric left ventricular hypertrophy is observed. There is normal left ventricular systolic function.Visually estimated LVEF is 55 %. Normal left ventricular diastolic filling is observed. Left Atrium: The left atrium is mildly dilated. Right Ventricle: The right ventricular chamber size and systolic function are within normal limits. Right Atrium: The right atrial cavity size is normal. Aortic Valve: The aortic valve structure is not well visualized. There is no evidence of aortic valve thickening. There is no evidence of aortic regurgitation. There is no evidence of aortic stenosis. Mitral Valve: The mitral valve leaflets appear normal. There is no evidence of mitral regurgitation. There is no evidence of mitral stenosis. Tricuspid Valve: The tricuspid valve structure is not well visualized. There is no evidence of tricuspid valve regurgitation. Unable to estimate the right ventricular systolic pressure. Pulmonic Valve: The pulmonic valve structure is not well visualized. Pericardium: There is no significant pericardial effusion. Aorta: The aortic root appears normal. There is no dilatation of the aortic arch. Pulmonary Artery: The main pulmonary artery is not well visualized. Venous: The inferior vena cava is dilated. There is less than 50% respiratory change in the inferior vena cava dimension. Contrast: Definity was used to optimize study. A total of 3 ml was used Conclusions The study is technically limited due to poor acoustic windows. Completed 0940 The left ventricular chamber size is mildly dilated. Mild concentric left ventricular hypertrophy is observed. Normal LV systolic function.. Visually estimated ejection fraction is 55%. Although poor quality imaging , no significant valvular dysfunction noted. No reports of prior studies offered for comparison Measurements Name Value Normal Range RVIDd (AP) 2D 1.8 cm (0.9 - 2.6) IVSd (2D) 1.1 cm (0.6 - 1) LVPWd (2D) 1.1 cm (0.6 - 1) LVIDd (2D) 5.7 cm (3.6 - 5.4) LVIDs (2D) 4.4 cm - LV FS (2D) 24 % (25 - 45) Aortic Annulus 2.3 cm (1.4 - 2.6) Ao root diameter (2D) 3 cm (2.1 - 3.5) Ascending Ao 2.9 cm (2.1 - 3.4) Aortic arch 3.4 cm (1.8 - 3.4) LA dimension (AP) 2D 3.4 cm (2.3 - 3.8) LAd ISD 4CH 6.5 cm (2.9 - 5.3) LA ISD 4CH W 5.4 cm (2.5 - 4.5) Name Value Normal Range LA ESV SP 4CH (A/L) 76.73 ml - LA ESV SP 2CH (A/L) 54.67 ml - LA ESV BP (A/L) 73.78 ml - LA ESV BP (A/L) index 30 ml/m2 - LA ESV SP 4CH (MOD) 70.39 ml - LA ESV SP 2CH (MOD) 50.76 ml - Name Value Normal Range MV E-wave Vmax 1.2 m/sec - MV deceleration time 165 msec - MV A-wave Vmax 0.8 m/sec - MV E:A ratio 1.5 ratio - LV septal e' Vmax 0.12 m/sec - LV lateral e' Vmax 0.12 m/sec - LV E:e' septal ratio 10 ratio - LV E:e' lateral ratio 10 ratio - Name Value Normal Range AV Vmax 1.5 m/sec - AV VTI 27.4 cm - AV peak gradient 9 mmHg - AV mean gradient 3.9 mmHg - LVOT Vmax 1.1 m/sec - LVOT VTI 23 cm - LVOT peak gradient 5 mmHg - LVOT mean gradient 2.8 mmHg - MARIXA Vmax 1.3 m/sec - Name Value Normal Range MV Vmax 1.3 m/sec - MV VTI 27.6 cm - MV peak gradient 7 mmHg - MV mean gradient 3 mmHg - MV PHT 60 msec - MVA (PHT) 3.7 cm2 - Name Value Normal Range RAP 8 mmHg - IVC diameter 2.4 cm - Name Value Normal Range PV Vmax 1 m/sec - PV peak gradient 4 mmHg -
--- NOTE | 2017-03-21 16:06 | PN ---
Hospitalist Progress Note Pt was seen at 7:05 AM for CAT halley. apparently she had dry hives and was sitting in bed, then had a witnessed episode when she collapsed and had generalized "shaking". Afterwards was confused.VS unremarkable. No incontinence noted, but c/o headache and had R sided weakness. CT brain was unremarkable. Care was signed off to pt's primary provider and Dr. Her.
--- NOTE | 2017-03-21 17:00 | RAD ---
HISTORY: Headache, seizure activity COMPARISONS: Head CT dated March 21, 2017 TECHNIQUE: The following sequences were obtained of the head: Sagittal T1-weighted images, axial T2-weighted images, axial FLAIR images, axial susceptibility weighted images, axial T1-weighted images, coronal T1, T2 and FLAIR images through the mesial temporal lobes. Additionally, axial diffusion-weighted images were obtained with calculated apparent diffusion coefficients. FINDINGS: The study is limited by patient motion artifact. HEMORRHAGE/INFARCT: There is no hemorrhage or acute infarct. MASSES/SHIFT: There is no mass or shift. EXTRA-AXIAL SPACES/MENINGES: There are no extra-axial fluid collections. SULCI AND VENTRICLES: The sulci and ventricles are normal in size and position for the patient's stated age. CEREBRUM: There are no focal brain parenchymal abnormalities. The mesial temporal lobes are symmetric in size, architecture, and signal intensity. The collateral white matter bundles are symmetric. The mamillary bodies and temporal horns of the lateral ventricles are symmetric in size. There is no appreciable cortical dysplasia or heterotopia. BRAINSTEM: There are no focal parenchymal abnormalities. CEREBELLUM: There are no focal parenchymal abnormalities. The cerebellar tonsils are normal in size and position. SELLA: The sella is normal. PINEAL: There is a 0.6 cm pineal cyst. CP ANGLE/TEMPORAL BONES: The labyrinthine structures are grossly normal. VESSELS: Normal flow-voids are noted within the visualized vertebral vasculature. DIFFUSION ABNORMALITIES: There are no diffusion abnormalities. PARANASAL SINUSES/MASTOIDS: There is mucosal thickening of the right maxillary sinus. There is postsurgical change to the sinuses. ORBITS: The orbits are unremarkable. BONES AND SOFT TISSUE: No bone or soft tissue abnormalities are noted. OTHER: None IMPRESSION: LIMITED STUDY. THE MESIAL TEMPORAL LOBES ARE SYMMETRIC. THERE IS NO APPRECIABLE CORTICAL DYSPLASIA OR HETEROTOPIA.
[2017-03-21] MEDS: Famotidine TAB* 20 MG PO SCH (17:08)
[2017-03-21] MEDS ORDERED: ALPRAZolam TAB* 0.5 MG PO ONE (17:10)
[2017-03-21] MEDS ORDERED: LORazepam INJ* 2 MG/ML 1 ML VIAL IV PUSH PRN (17:39)
[2017-03-21] MEDS: Oxybutynin XL TAB* 5 MG PO SCH (18:08)
[2017-03-21] MEDS: Gabapentin CAP(*) 100 MG PO SCH (21:50)
[2017-03-21] MEDS: [UNRECOGNIZED DRUG - OTHER] TOPICAL PRN (21:51)
[2017-03-21] MEDS: LEVONORGESTREL PO SCH (22:23)
[2017-03-21] MEDS: ETHINYL ESTRADIOL PO SCH (22:23)
[2017-03-22] MEDS ORDERED: LORazepam INJ* 2 MG/ML 1 ML VIAL ONE (05:36)
[2017-03-22 05:47] LABS: EGFR African American 119.8 (>60); EGFR Non-African American 93.2 (>60)
--- NOTE | 2017-03-22 05:55 | PN ---
Progress Note - Progress Note Date of Service: 03/22/17 Note: CAT response Upon arrival nursing reports patient is alert, oriented, and with stable vitals , but is experiencing uncontrolled muscular twitching. Mrs Hernandez is AA&O to PPS. States this is the same as what happened the other day and resolved spontaneously with watchful waiting. She appears to be having coarse rigors vs myoclonus. She denies new complaints; no chest pain, headache, SOB, N/V, F/C, sweats, or other issues. vitals reviewed, stable general: obese white female lungs: CTAB, normal effort CV: RRR, normal S1S2 abdomen: SNTND, NABS extremities: W&D POC glucose >100 telemetry w/ NSR assessment: plan rigors vs myoclonus vs extrapyramidal symptoms (although no causative agent is identified) : 1mg lorazepam IV quickly & visibly reduced her twitching : nursing advised to give 25mg diphenhydramine IV if her twitching has not stopped in ~5 minutes
[2017-03-22] MEDS: Ondansetron ODT TAB* 4 MG PO PRN ×2 (06:05→21:26)
[2017-03-22] MEDS: Heparin VIAL(*) 5000 UNITS/ML VIAL (FIVE THOUSAND) SUBCUT SCH ×3 (06:05→21:30)
[2017-03-22] MEDS: Levothyroxine TAB* 150 MCG TAB PO SCH (06:05)
--- NOTE | 2017-03-22 06:39 | EEG ---
ELECTROENCEPHALOGRAPHY: DATE OF STUDY: 03/21/17 LOCATION: She is in ICU, bed 11. REFERRING PHYSICIAN: Dr. Her. CLINICAL PROBLEM: The patient admitted for possible infection, developed shaking of one side of her body and diminished responsiveness on the morning of this recording. The patient had intermittent shaking while being evaluated by the air conditioning technician and the EEG was being initiated. MEDICATIONS: Extensive and include: 1. Hydroxychloroquine. 2. Azithromycin. 3. Levothyroxine. 4. Gabapentin. 5. Vancomycin. 6. Ceftriaxone. 7. Metronidazole. 8. Insulin. REPORT: This 16-channel EEG is remarkable for background rhythms consisting of a well-formed alpha rhythm in the posterior derivations at about 10 to 11 cycles per second, which is symmetric and suppressed by eye opening. Low- voltage faster rhythms are seen bifrontally. Movement and eye movement artifacts are seen intermittently. The patient has episodes of right arm shaking and other movements without change in background waking rhythms. There is no evidence of sleep stages. Activation procedure is not attempted. There are no focal or epileptiform discharges. CLINICAL IMPRESSION: Normal awake EEG including during episodes of shaking of one arm and other movements. This tracing is a normal study and there are no epileptiform features to it including during unilateral shaking movements. [id number]/[facility] #: [id number] MTDD
[2017-03-22] MEDS: Mometasone/Formoter 200/5 MDI INH SCH ×2 (07:59→20:40)
[2017-03-22] MEDS ORDERED: Vancomycin Trough Check NOTE FOLLOW UP ONE (08:30)
[2017-03-22] MEDS: Insulin LISPRO* 1 UNITS UNIT SUBCUT SCH ×3 (09:14→17:45)
[2017-03-22] MEDS: APREMILAST 30 MG PO SCH ×2 (09:32→17:55)
[2017-03-22] MEDS: Omeprazole CAP* 20 MG PO SCH (09:33)
[2017-03-22] MEDS: Hydroxychloroquine TAB* 200 MG PO SCH (09:33)
[2017-03-22] MEDS: Azithromycin TAB* 250 MG PO SCH (09:34)
[2017-03-22] MEDS: Naproxen TAB* 250 MG PO SCH ×2 (09:34→17:44)
[2017-03-22] MEDS: Fluticasone NASAL SPRAY 50MCG* 16 gm SPRAY BTL BOTH NARES SCH (09:35)
[2017-03-22] MEDS: metroNIDAZOLE TAB* 250 MG PO SCH ×3 (09:35→19:42)
[2017-03-22] MEDS: [UNRECOGNIZED DRUG - OTHER] TOPICAL PRN (09:42)
--- NOTE | 2017-03-22 11:57 | PN ---
Subjective Date of Service: 03/22/17 Interval History: Patient seen and examined at bedside. Reports feeling "much better" this AM and denies any further episodes of shaking, other than early this morning. She denies fever/chills but states she did have an episode of flushing and sweating overnight. Denies YEE, CP, SOB. Reports more drainage from cellulitis, stating that "thick chunky discharge" was seen overnight. Family History: Unchanged from Admission Social History: Unchanged from Admission Past Medical History: Unchanged from Admission Objective Active Medications: Acetaminophen/Codeine Phosphate (Tylenol/Codeine 30 Mg Tab*) 1 tab PO Q4HR PRN PRN Reason: PAIN Last Admin: 03/21/17 17:09 Dose: 1 tab Albuterol (Ventolin Hfa Inhaler*) 2 puff INH QID PRN PRN Reason: asthma Apremilast (Otezla (Nf)) 30 mg PO 0800,1700 [facility] Last Admin: 03/22/17 09:32 Dose: 30 mg Azithromycin (Zithromax Tab*) 500 mg PO DAILY [facility] Last Admin: 03/22/17 09:34 Dose: 500 mg Dextrose (D50w Syringe 50 Ml*) 12.5 gm IV PUSH .FOR FS < 60 - SS PRN PRN Reason: FS < 60 Famotidine (Pepcid Tab*) 40 mg PO QPM [facility] Last Admin: 03/21/17 17:08 Dose: 40 mg Fluticasone Propionate (Flonase Nasal [place] 50mcg*) 1 spray BOTH NARES DAILY [facility] Last Admin: 03/22/17 09:35 Dose: 1 spray Gabapentin (Neurontin Cap(*)) 200 mg PO BEDTIME [facility] Last Admin: 03/21/17 21:50 Dose: 200 mg Heparin Sodium (Porcine) (Heparin Vial(*)) 5,000 units SUBCUT Q8HR [facility] Last Admin: 03/22/17 06:05 Dose: 5,000 units Heparin Sodium (Porcine) (Heparin Flush Picc/Ml/Cvc(*)) 1 - 3 ml FLUSH 0600, 1800 PITER PRN Reason: Protocol Last Admin: 03/22/17 06:06 Dose: 1 ml Hydroxychloroquine Sulfate (Plaquenil Tab*) 400 mg PO DAILY [facility] Last Admin: 03/22/17 09:33 Dose: 400 mg Ceftriaxone Sodium 2 gm/ (Sodium Chloride) 100 mls @ 200 mls/hr IVPB Q24H [facility] Last Admin: 03/21/17 14:25 Dose: 200 mls/hr Insulin Human Lispro (Humalog*) 0 - 10 units SUBCUT AC PITER PRN Reason: Protocol Last Admin: 03/22/17 09:14 Dose: Not Given Levothyroxine Sodium (Synthroid Tab*) 150 mcg PO 0600 [facility] Last Admin: 03/22/17 06:05 Dose: 150 mcg Lorazepam (Ativan Inj*) 0.5 mg IV PUSH Q4H PRN PRN Reason: SEIZURES Metronidazole (Flagyl Tab*) 500 mg PO TID [facility] Last Admin: 03/22/17 09:35 Dose: 500 mg Mometasone Furoate/Formoterol Fumar (Dulera 200/5 Mdi*) 2 puff INH BID PITER PRN Reason: Protocol Last Admin: 03/22/17 07:59 Dose: 2 puff Naproxen (Naprosyn Tab*) 500 mg PO 0800,1700 [facility] Last Admin: 03/22/17 09:34 Dose: 500 mg Pto: Ashlyna 0.15-0. (03 &0.01 Mg 1 Tab)) 1 tab PO BEDTIME [facility] Last Admin: 03/21/17 22:23 Dose: 1 tab Pto: Emuaid Cream 1 dose TOPICAL BID PRN PRN Reason: PROVIDER DISCRETION Last Admin: 03/22/17 09:42 Dose: 1 dose Omeprazole (Prilosec Cap*) 40 mg PO DAILY [facility] Last Admin: 03/22/17 09:33 Dose: 40 mg Ondansetron HCl (Zofran Odt Tab*) 4 mg PO Q6H PRN PRN Reason: NAUSEA/VOMITING Last Admin: 03/22/17 06:05 Dose: 4 mg Oxybutynin Chloride (Ditropan Xl Tab*) 10 mg PO QPM [facility] Last Admin: 03/21/17 18:08 Dose: 10 mg Vital Signs 03/21/17 03/21/17 03/21/17 12:20 15:46 17:09 Temperature 97.7 F 97.6 F Pulse Rate 80 83 Respiratory 17 20 18 Rate Blood Pressure 137/58 147/81 (mmHg) O2 Sat by Pulse 99 98 Oximetry 03/21/17 03/21/17 03/21/17 17:58 19:09 19:40 Temperature Pulse Rate 80 Respiratory 17 18 Rate Blood Pressure 110/60 (mmHg) O2 Sat by Pulse 97 Oximetry 03/21/17 03/21/17 03/21/17 19:48 19:58 20:01 Temperature 98.3 F Pulse Rate 86 Respiratory 16 16 Rate Blood Pressure (mmHg) O2 Sat by Pulse 96 Oximetry 03/21/17 03/21/17 03/21/17 21:45 21:50 23:50 Temperature Pulse Rate Respiratory 18 16 16 Rate Blood Pressure (mmHg) O2 Sat by Pulse Oximetry 03/21/17 03/22/17 03/22/17 23:58 03:59 05:34 Temperature 97.9 F 97.9 F Pulse Rate 75 83 91 Respiratory 16 16 Rate Blood Pressure 108/49 100/65 106/71 (mmHg) O2 Sat by Pulse 100 95 100 Oximetry 03/22/17 03/22/17 03/22/17 05:35 05:41 05:45 Temperature 98.2 F Pulse Rate 93 88 Respiratory 20 Rate Blood Pressure 106/71 138/48 (mmHg) O2 Sat by Pulse 100 100 Oximetry 03/22/17 03/22/17 03/22/17 06:41 08:00 08:02 Temperature 98.5 F Pulse Rate 84 Respiratory 18 20 18 Rate Blood Pressure 141/94 (mmHg) O2 Sat by Pulse 99 Oximetry Oxygen Devices in Use Now: None Appearance: Female patient, sitting up in bed, NAD Eyes: No Scleral Icterus, PERRLA Ears/Nose/Mouth/Throat: Clear Oropharnyx, Mucous Membranes Moist Neck: NL Appearance and Movements; NL JVP Respiratory: Symmetrical Chest Expansion and Respiratory Effort, Clear to Auscultation Cardiovascular: NL Sounds; No Murmurs; No JVD, RRR Extremities: No Clubbing, Cyanosis Skin: - - left labial cellulitis, decreased in size, no active drainage noted; erythema to right ochoa with atrophic dermatitis noted Neurological: Alert and Oriented x 3 Lines/Tubes/Other Access: Clean, Dry and Intact PICC Line Nutrition: Taking PO's Result Diagrams: 03/21/17 06:21 03/22/17 05:26 Microbiology and Other Data: Microbiology 03/19/17 13:00 Gram Stain - Final Buttock Diagnostic Imaging: CT Brain, 03/21 FINDINGS: The ventricles, cisterns and sulci are within normal limits. No significant focal abnormality or mass effect is seen. There is no evidence for hemorrhage. The patient appears to be status post paranasal sinus surgery. There is mild mucosal thickening within the maxillary and ethmoid air cells. The frontal and sphenoid sinuses appear clear. The mastoid air cells appear clear. The results of this exam were called to the referring clinician at 0733 hours. IMPRESSION: NO EVIDENCE FOR GROSS ACUTE INFARCT, MASS EFFECT OR HEMORRHAGE. Assess/Plan/Problems-Billing Assessment: Ms. Hernandez is a 46 yo female with a PMH of prediabetes, Bon's thyroiditis , asthma, celiac disease, neuropathy of the feet, ?sarcoidosis of the lung (not confirmed by biopsy, and MRSA in leg wound and sinuses who presented to the ED on 03/18 with concern for worsening cellulitis that has not responded to outpatient clindamycin. - Patient Problems (1) Altered mental state Code(s): R41.82 - ALTERED MENTAL STATUS, UNSPECIFIED Comment: Still with intermittent episodes of shaking, though patient maintains consciousness EEG taken during one of the episodes; no epileptiform abnormalities noted Question of seizure activity vs psychogenic seizure, ?complex migraine (given YEE ) Appreciate neurology consult and input MRI brain w/o contrast negative for CVA or other acute pathology MRI w/ contrast and MRA pending Neuro checks (2) Cellulitis Code(s): L03.90 - CELLULITIS, UNSPECIFIED Comment: To left gluteal fold, extending to labia Failed outpatient clindamycin Wound culture growing strep, final results pending Blood cx with no growth so far Repeat pelvic CT to monitor for abscess Continue ceftriaxone, metronidazole Appreciate ID consult (3) Neuropathy Code(s): G62.9 - POLYNEUROPATHY, UNSPECIFIED Comment: Stable Continue home gabapentin. (4) Asthma Code(s): J45.909 - UNSPECIFIED ASTHMA, UNCOMPLICATED Comment: Stable Continue Dulera (therapeutic sub for home Advair) and prn albuterol. (5) Bon's thyroiditis Current Visit: No Status: Acute Code(s): E06.3 - AUTOIMMUNE THYROIDITIS Comment: Continue levothyroxine. (6) Diabetes Current Visit: No Code(s): E11.9 - TYPE 2 DIABETES MELLITUS WITHOUT COMPLICATIONS Comment: Continue Lispro SSI HgbA1c 5.9 Home metformin on hold. (7) Sarcoidosis Code(s): D86.9 - SARCOIDOSIS, UNSPECIFIED Comment: Continue Otezla Continue outpatient f/u with rheumatology and immunology (8) DVT prophylaxis Comment: SQ heparin Status and Disposition: Inpatient admit. Plan for dc to home when medically stable.
[2017-03-22] MEDS: Acetaminop/Codeine 30 MG TAB* 1 TAB (300 MG/30 MG) PO PRN (12:58)
--- NOTE | 2017-03-22 14:53 | RAD ---
INDICATION: Cellulitis. Evaluate for abscess. COMPARISON: CT pelvis a 2016 TECHNIQUE: Noncontrast axial source images were obtained from the iliac crests through the symphysis pubis. FINDINGS: There is mild infiltration of fat of the medial-inferior soft tissues of the left gluteal region suggestive of a cellulitis. The degree of infiltrative change as well as the degree of soft tissue prominence have both decreased consistent with mild interval improvement. There is no localized fluid collection to suggest abscess. The noncontrast CT appearance the intraperitoneal structures is essentially unremarkable and unchanged. Incidental note is made of a tiny, fat-containing, periumbilical hernia. No free fluid or adenopathy is seen. The noncontrast CT appearance of the visualized bowel is unremarkable. The uterus and bladder appear normal. There is no acute bony change. IMPRESSION: MILD CELLULITIC CHANGE MEDIAL-INFERIOR SOFT TISSUES OF LEFT GLUTEAL REGION. THERE IS MILD INTERVAL IMPROVEMENT. NO ABSCESS.
--- NOTE | 2017-03-22 17:19 | PN ---
Hospitalist Progress Note Patient requested to complete MRIs prior to discharge rather than completing as an outpatient. Reviewed discharge instructions and prescriptions with patient and family; she verbalized understanding. Plan for d/c to home following MRI; nursing to call night GIRLS SWIMMING COACH to review MRI prior to dc.
[2017-03-22] MEDS: Famotidine TAB* 20 MG PO SCH (17:50)
[2017-03-22] MEDS: Oxybutynin XL TAB* 5 MG PO SCH (17:51)
[2017-03-22] MEDS: ETHINYL ESTRADIOL PO SCH (19:43)
[2017-03-22] MEDS: LEVONORGESTREL PO SCH (19:43)
[2017-03-22] MEDS ORDERED: Gadobenate* (CONTRAST) 529 MG/ML 10 ML SDV IV ONE (20:00)
[2017-03-22] MEDS: Gabapentin CAP(*) 100 MG PO SCH (21:27)
--- NOTE | 2017-03-22 21:30 | RAD ---
HISTORY: Stroke versus TIA COMPARISONS: MRI dated March 21, 2017 TECHNIQUE: The following sequences were obtained of the head: Sagittal, axial, and coronal T1-weighted images were obtained after contrast enhancement with gadolinium based contrast agent. FINDINGS: This study is within conjunction with the MRI of March 21, 2017. There is no abnormal enhancement IMPRESSION: UNREMARKABLE POSTCONTRAST MRI OF THE BRAIN. NO ABNORMAL ENHANCEMENT.
--- NOTE | 2017-03-22 21:31 | RAD ---
HISTORY: Stroke versus TIA COMPARISONS: None TECHNIQUE: 3-D axial [id number] MR angiography was performed of the head to include the [place] of [place]. Multiple 3-D maximum intensity projection reconstructions are also submitted for review. FINDINGS: RIGHT VERTEBRAL ARTERY: The distal right vertebral artery is unremarkable, without stenosis. LEFT VERTEBRAL ARTERY: The distal left vertebral artery is unremarkable, without stenosis. DOMINANCE: The vertebral arteries are codominant. 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 DISTAL LEFT CERVICAL INTERNAL CAROTID ARTERY: The distal left cervical internal carotid artery is unremarkable. INTRACRANIAL CIRCULATION: There is no aneurysm, vascular malformation, occlusion, or stenosis of the visualized intracranial circulation. The anterior communicating artery complex is clear. Bilateral posterior communicating arteries are identified. OTHER FINDINGS: None IMPRESSION: NO ANEURYSM, VASCULAR MALFORMATION, OCCLUSION, OR STENOSIS OF THE VISUALIZED INTRACRANIAL CIRCULATION.
--- NOTE | 2017-03-22 21:33 | RAD ---
HISTORY: Stroke versus TIA COMPARISONS: None TECHNIQUE: The following sequences were obtained of the neck after localizing images: Stacked axial 2-D bkob-[id number]-dvhnzy MR angiography of the neck; 3-D axial pksy-sp-qaeffr MR angiography of the carotid bifurcations. Additionally 3-D multiphase contrast-enhanced MR angiography of the neck was performed after the administration of a gadolinium-based intravenous contrast agent. . Multiple 3-D maximum intensity projection reconstructions are submitted for review. FINDINGS: The study is limited by patient motion artifact. AORTA: The aortic arch is not well visualized secondary to technique and motion artifact. There is no obvious ostial or proximal stenosis of the cephalic great vessels. RIGHT VERTEBRAL ARTERY: The right vertebral artery is patent and without stenosis. LEFT VERTEBRAL ARTERY: The left vertebral artery is patent, without stenosis. DOMINANCE: The vertebral arteries are codominant. RIGHT COMMON CAROTID ARTERY: The right common carotid artery is patent. RIGHT INTERNAL CAROTID ARTERY: There is no right internal carotid artery stenosis by NASCET criteria. LEFT COMMON CAROTID ARTERY: The left common carotid artery is patent. LEFT INTERNAL CAROTID ARTERY: There is no left internal carotid artery stenosis by NASCET criteria. ADDITIONAL FINDINGS: The visualized intracranial circulation is unremarkable. IMPRESSION: LIMITED STUDY. NO INTERNAL CAROTID ARTERY STENOSIS BY NASCET CRITERIA. CPT II Codes: 3100F
[2017-03-22 23:10] VITALS: BP 152/78
--- NOTE | 2017-03-23 03:38 | PN ---
PROGRESS NOTE: DATE OF SERVICE: 03/22/17 LOCATION: She is currently in room 441, bed 2. SUBJECTIVE: Overnight she has had no new symptoms, the numbness in her right arm has improved, although she continues to have intermittent symptoms. She states that she feels weak in the right arm and leg at times, but she has had this for a while. She has had no further focal symptoms, although she has had some episodes of shaking. There has been no overt seizure activity otherwise. She states occasionally she has some trouble swallowing. OBJECTIVE: Vital Signs: Temperature is 98.5, pulse rate of 84, respiratory rate of 18, pulse ox 99%, blood pressure 144/94. She has been afebrile. Blood pressure high of 141/94. O2 sats have been good in the 90s. General: She is a well- nourished, well-developed obese female lying in her hospital bed. She is pleasant this morning. HEENT: Normocephalic, atraumatic. Sclerae anicteric. Mucous membranes moist. Neck: Supple. Chest: Clear to auscultation bilaterally. Cardiovascular: Regular rate and rhythm. Abdomen: Nontender, obese. Skin: Warm and dry. No edema noted. Neurologic Exam: Awake, alert, and oriented x3. Speech is fluent. There is no dysarthria. Repetition is intact. Cranial nerves II through XII. Visual shelton are full. Pupils are equally round and reactive to light. Extraocular muscles are intact. Face is symmetric. Tongue is midline. Palate elevates symmetrically. Hearing is intact. She is spontaneously moving all extremities antigravity generally 4+/5 with some poor effort. Sensation is grossly intact to light touch in the upper and lower extremities, although she has occasional paresthesias in the right arm and right leg. Lfmeic-os-vafo rapid alternating movements were intact without tremor. She has no current tremor activity, although she has had some "shaking" of the right arm at times. She had the EEG done, which was normal. It did capture one of the shaking episodes in the arm and showed no epileptiform features during that time. She had an MRI of the brain, which showed no acute infarcts. Mesial temporal lobes are symmetric. No appreciable cortical dysplasia or heterotopia. IMAGING: Transthoracic echocardiogram: Ejection fraction of 55%, technically limited due to poor acoustic window, mildly dilated ventricular chamber, mild concentric left ventricular hypertrophy, normal left ventricular systolic function. No significant valvular dysfunction. She was unable to complete the MRA of the neck. ASSESSMENT/PLAN: 1. Ms. Hernandez is a 46-year-old female with multiple medical issues, was admitted for cellulitis and is being treated on antibiotics. Yesterday morning had an episode where she was shaking, fell back, some loss of consciousness or confusion. There was concern for seizure activity. She also developed acute onset of right arm pain and weakness, although subsequent MRI showed no evidence of stroke and she has had these symptoms off and on for some time. Victorino Tinoco was called yesterday, but it was determined that she did not need criteria for TPA due to the reported seizure activity prior and the fact that __ ____. Plan; continue current management. There is no evidence to suggest stroke at this time or transient ischemic attack. I would not put her on any antiplatelet at this time. She does need to control her other medical issues including her diabetes and blood pressure issues. 2. She does have a history of neuropathy and a history of chronic right arm pain. She is to see a neurologist in [place] on 04/16/17. I told her that I would be happy to follow up with her afterwards. At this time point, I have no new recommendations regarding her care. My suspicion for seizures is extremely low and I suspect that these were non-epileptic events. [id number]/[facility] #: [id number] [facility]OSPITAL[facility]ia
--- NOTE | 2017-03-24 01:39 | DS ---
CC: Dr. Katie Drake; Dr. Cony Salguero; Dr. Alvina Em; Dr. Sid Her, Neurology; * Carmelo Hayes. * DISCHARGE SUMMARY: DATE OF ADMISSION: 03/18/17 DATE OF DISCHARGE: 03/22/17 PRIMARY CARE PHYSICIAN: Dr. Katie Drake. PRIMARY SECOND CUTTER: Dr. Cony Salguero, Adult Rheumatology in [place] as well as Dr. Alvina Em. PROVIDER: Chiquis Martino NP ATTENDING PHYSICIAN: Dr. Jesus Patel * (as dictated by Chiquis Martino NP). CONSULTING PHYSICIAN: Dr. Cain Limon, Infectious Disease. NEUROLOGY: Dr. Sid Her. PRIMARY DISCHARGE DIAGNOSES: 1. Cellulitis of the left groin. 2. Convulsions of unknown etiology. SECONDARY DISCHARGE DIAGNOSES: 1. Sarcoidosis of the lung, although not confirmed by biopsy. 2. Reported immunologic complaints and diseases. 3. Neuropathy of the feet. 4. Bon's thyroiditis. 5. Prediabetes. 6. Asthma. 7. Celiac disease. 8. History of methicillin-resistant Staphylococcus aureus in leg wound and sinuses. 9. Obstructive sleep apnea. 10. Obesity, BMI 41.9. MEDICATIONS: Home medications at discharge: 1. Advair 2 puffs inhaled b.i.d. 2. Fluticasone nasal spray, 1 spray to both nares daily. 3. Gabapentin 200 mg at bedtime. 4. Famotidine 40 mg q.p.m. 5. Azithromycin 500 mg daily. 6. Tylenol with Codeine 1 tab q.4 hours p.r.n. 7. Levothyroxine 150 mcg daily. 8. Plaquenil 400 mg daily. 9. Oxybutynin 10 mg q.p.m. 10. Ondansetron ODT 4 mg q.8 hours p.r.n. 11. Omeprazole 40 mg daily. 12. Naproxen 500 mg b.i.d. 13. Metformin 2000 mg at bedtime. 14. Seasonique 1 tab at bedtime. 15. ProAir 2 puffs inhaled four times a day p.r.n. 16. Apremilast 30 mg b.i.d. New medications at discharge: 1. Augmentin 500 mg t.i.d. x10 additional days. HOSPITAL COURSE OF STAY: For full details, please refer to the H and P provided by Leona Hernandez NP, on 03/18/17. In summary, Ms. Hernandez is a 46-year-old female, who presented to the emergency room initially on with complaints of an abscess to the left labia and along the gluteal fold extending towards the perineum. During that time, the ER providers could not find a collection that could be drained, so she was started on clindamycin and sent home. The patient represented back to the ER on 03/18/17 reporting continued edema and erythema and generalized malaise. She presented with fever. She was noted on admission to have leukocytosis at 14.8. A CT of the pelvis showed left gluteal swelling consistent with cellulitis, but no abscess was seen. The patient was started on vancomycin and cefepime. ID was consulted. The patient's medications were changed from cefepime to ceftriaxone and Flagyl. The patient did show improvement with these medication treatments and reported that the areas of cellulitis started to drain on their own. She is reportedly feeling better. However, on the morning of 03/21/17, the patient with the cat team response for sudden onset of headache with convulsion and nausea. The patient was observed to be shaking with concern for seizure. A Code T[place]oo was called and the patient had CT of the brain, which was negative for any acute pathology. Neurology followed the patient and continued to work up, which included MRI of the brain, which was negative for any restricted diffusion, hemorrhages, masses, or any other symptoms of concern. The patient also had an EEG done. During episode of the shaking, the EEG showed no evidence of epileptiform features. Clinical impression stated that this is a normal awake EEG including one of the episodes of shaking one arm and other movements. The patient also had MRI of the brain with contrast and subsequent head and neck MRA, all of which were negative for acute pathology. There is no evidence of internal carotid artery stenosis. Prior to discharge, the patient's shaking and convulsive symptoms had resolved. She reported that she felt better and is requesting to go home. We did have a followup CT of the pelvis prior to discharge, which showed mild cellulitic change with interval improvement. No abscess again was seen. Per ID, the patient will be discharged to home on Augmentin. She has a followup with her PCP. The patient was encouraged to continue using heat to the affected areas to prevent drainage. The patient was also advised to not drive as there was concern for potential seizure activity, although this is still unclear. She does have an outpatient neurology followup in [place] in the upcoming weeks, which includes an EMG and the patient was advised to follow up with them in regards to possible need for a long-term EEG monitoring. CONCERNS AT DISCHARGE: Ms. Hernandez was discharged to home on 03/22/17. She is to follow up with her PCP as well as her death claim clerk and neurologist as previously scheduled. DIET: Consistent carbohydrate diet. ACTIVITY: As tolerated. CONDITION: Stable. OUTPATIENT FOLLOWUP NEEDS: Again, the patient will need outpatient monitoring of the cellulitis. The patient has been advised not to drive as there was concern for seizure activity and the patient should continue with her outpatient neurology followup. TIME SPENT: On this discharge was approximately 45 minutes. Again, this is only a brief summary of the patient's hospital course of stay. For full details, please refer to the full medical record. If you have any further questions or any further assistance, please feel free to contact me at . CHIQUIS MARTINO NP [id number]/[facility] #: [id number] MARTHA
== END 2017-03-22 22:45 | disposition home or self-care (01) | DRG 383 ==
LOC: ED 14:06 → SSU 22:05 → OBSVTOIN 03-19 09:00 → ICU 03-21 07:20 → MEDTELE 03-21 11:21
PROVIDERS: ADMIT Hospitalist; ATTEND Internal Medicine
PROC: 02HV33Z Insertion of Infusion Device into Superior Vena Cava, Percutaneous Approach (ICD-10-PCS; 2017-03-20)
PROC: 4A10X4Z Monitoring of Central Nervous Electrical Activity, External Approach (ICD-10-PCS; principal; 2017-03-21)
DX: L03.314 Cellulitis of groin (principal); R56.9 Unspecified convulsions; Z68.41 Body mass index [BMI] 40.0-44.9, adult; D86.89 Sarcoidosis of other sites; G62.9 Polyneuropathy, unspecified; E06.3 Autoimmune thyroiditis; R73.03 Prediabetes; J45.909 Unspecified asthma, uncomplicated; K90.0 Celiac disease; Z86.14 Personal history of Methicillin resistant Staphylococcus aureus infection; G47.33 Obstructive sleep apnea (adult) (pediatric); Z88.2 Allergy status to sulfonamides; Z88.5 Allergy status to narcotic agent; Z91.040 Latex allergy status; Z91.013 Allergy to seafood; E73.9 Lactose intolerance, unspecified; Z82.49 Family history of ischemic heart disease and other diseases of the circulatory system; Z83.3 Family history of diabetes mellitus; Z80.3 Family history of malignant neoplasm of breast; Z80.0 Family history of malignant neoplasm of digestive organs; E03.9 Hypothyroidism, unspecified; E66.01 Morbid (severe) obesity due to excess calories; L40.9 Psoriasis, unspecified; G89.29 Other chronic pain; M79.601 Pain in right arm; R15.9 Full incontinence of feces
CPT/HCPCS: 36415; 70450; 70544; 70549; 70551; 70552; 72192; 72193; 80048; 80053; 80061; 80202; 82565; 82607; 82746; 83036; 83090; 83605; 84443; 84520; 85025; 86140; 87040; 87070; 87077; 87186; 87205; 93005; 93306; 94640; 95819; A9270-GY; A9577; C8929; J0692; J0696; J1644; J2060; J3370; Q9967